=== PATIENT | male | born 1985 | race Caucasian/White ===

== ENCOUNTER 2018-07-15 11:58 | Inpatient (IN) | payer SELFPAY ==
--- NOTE | 2018-07-15 13:28 | ER Document Report ---
ED Medical Screen (RME) - General Chief Complaint: Leg Swelling Stated Complaint: LEG PAIN Time Seen by Provider: 07/15/18 13:26 Notes: Patient is a 32-year-old male that presents to the emergency department for chief complaint of itching, and right leg swelling, after picking thinking he has scabies. ROS: GENERAL: Denies fever or chills CV: Denies chest pain PHYSICAL EXAMINATION: Vital signs reviewed. GENERAL: Well-appearing, well-nourished in mild distress HEAD: Atraumatic, normocephalic. EYES: Pupils equal round extraocular movements intact, conjunctiva are normal. ENT: Nares patent NECK: Normal range of motion CV: Heart regular rate and rhythm LUNGS: No respiratory distress Musculoskeletal: Normal range of motion NEUROLOGICAL: Normal speech PSYCH: Normal mood, normal affect. Skin: Multiple areas of excoriation, the left lower extremity appears cellulitic with erythema, and tenderness. MDM: Patient seen and examined for rapid initial assessment. Vital signs reviewed. A comprehensive ED assessment and evaluation of the patient, analysis of test results and completion of the medical decision making process will be conducted by additional ED providers. *Note is created using voice recognition software and may contain spelling, syntax or grammatical errors. TRAVEL OUTSIDE OF THE [place] IN LAST 30 DAYS: No - Related Data Allergies/Adverse Reactions: No Known Allergies Allergy (Verified 07/15/18 12:00) Past Medical History Pulmonary Medical History: Denies: Hx Tuberculosis Neurological Medical History: Denies: Hx Seizures GI Medical History: Reports: Hx Gastroesophageal Reflux Disease, Hx Ulcer Past Surgical History: Reports: Hx Orthopedic Surgery - arm. Denies: Hx Pacemaker - Immunizations Hx Diphtheria, Pertussis, Tetanus Vaccination: Yes Physical Exam - Vital signs Vitals: Temp Pulse Resp BP Pulse Ox 97.6 F 126 H 20 108/73 97 07/15/18 12:21 07/15/18 12:21 07/15/18 12:21 07/15/18 12:21 07/15/18 12:21 Course - Vital Signs Vital signs: Temp Pulse Resp BP Pulse Ox 97.6 F 126 H 20 108/73 97 07/15/18 12:21 07/15/18 12:21 07/15/18 12:21 07/15/18 12:21 07/15/18 12:21
[2018-07-15] MEDS ORDERED: NORMAL SALINE 1000 ML 1,000 ML IV ONE ×2 (13:38→16:14)
[2018-07-15] MEDS ORDERED: VANCOMYCIN HCL INJ 1000 MG VIAL IV ONE (13:38)
[2018-07-15 14:25] LABS: INTERNATIONAL RATION (INR) 1.16; PROTHROMBIN TIME 15.4 SEC (11.4-15.4)
[2018-07-15 14:36] LABS: HEMATOCRIT 39.4 % (37.9-51.0); HEMOGLOBIN 13.7 g/dL (13.5-17.0); MEAN CORPUSCULAR HEMOGLOBIN 29.1 pg (27.0-33.4); MEAN CORPUSCULAR HGB CONC 34.7 g/dL (32.0-36.0); MEAN CORPUSCULAR VOLUME 84 fl (80-97); PLATELET COUNT 416 10^3/uL (150-450); RED BLOOD COUNT 4.69 10^6/uL (4.35-5.55); RED CELL DISTRIBUTION WIDTH 13.6 % (11.5-14.0); WHITE BLOOD COUNT 23.8 10^3/uL (4.0-10.5)
[2018-07-15 14:39] LABS: ALANINE AMINOTRANSFERASE 39 U/L (21-72); ALBUMIN 3.7 g/dL (3.5-5.0); ALKALINE PHOSPHATASE 130 U/L (38-126); ANION GAP 15 (5-19); ASPARTATE AMINO TRANSFERASE 30 U/L (17-59); BILIRUBIN,DIRECT 0.5 mg/dL (0.0-0.4); BILIRUBIN,TOTAL 1.6 mg/dL (0.2-1.3); BLOOD UREA NITROGEN 14 mg/dL (7-20); CALCIUM 9.2 mg/dL (8.4-10.2); CARBON DIOXIDE 27 mmol/L (22-30); CHLORIDE 91 mmol/L (98-107); GLUCOSE 113 mg/dL (75-110); POTASSIUM 3.6 mmol/L (3.6-5.0); SODIUM 132.8 mmol/L (137-145); TOTAL PROTEIN 7.4 g/dL (6.3-8.2)
[2018-07-15 14:59] LABS: ABSOLUTE LYMPHOCYTES# (MANUAL) 0.2 10^3/uL (0.5-4.7); ABSOLUTE MONOCYTES # (MANUAL) 1.2 10^3/uL (0.1-1.4); ABSOLUTE NEUTROPHILS# (MANUAL) 22.4 10^3/uL (1.7-8.2); BAND NEUTROPHILS % (MANUAL) 5 % (3-5); BASOPHILS % (MANUAL) 0 % (0-2); EOSINOPHILS % (MANUAL) 0 % (0-6); LYMPHOCYTES % (MANUAL) 1 % (13-45); MONOCYTES % (MANUAL) 5 % (3-13); PLATELET COMMENT ADEQUATE; POLYCHROMASIA SLIGHT; SEGMENTED NEUTROPHILS % (MAN) 89 % (42-78); TOTAL CELLS COUNTED 100; TOXIC GRANULATION 3+; TOXIC VACUOLATION PRESENT
--- NOTE | 2018-07-15 15:53 | ER Document Report ---
ED Extremity Problem, Lower - General Chief Complaint: Leg Swelling Stated Complaint: LEG PAIN Time Seen by Provider: 07/15/18 13:26 Mode of Arrival: Ambulatory Information source: Patient Notes: 32-year-old IV heroin user is here with his mother complaining of severe pain and redness to his left leg with crusted lesions and sores all over his body. He 3 days. Lab work has already been resulted with an elevated white count and no segmental shift, lactic acid is 3.1. EKG has not been done. Vancomycin is hanging, 1 L of IV fluid has almost been completed. Patient denies chest pain shortness of breath. Denies abdominal pain vomiting or diarrhea. He is worried that he has a hernia in his left groin. He states that a roommate that he is living with was diagnosed with scabies and he has been scratching these lesions for 6 days. He has a history of MRSA. TRAVEL OUTSIDE OF THE [place] IN LAST 30 DAYS: No - Related Data Allergies/Adverse Reactions: No Known Allergies Allergy (Verified 07/15/18 12:00) Past Medical History - General Information source: Patient - Social History Smoking Status: Current Every Day Smoker Chew tobacco use (# tins/day): No Drug Abuse: Heroin - daily, last dose 3 days ago, Methamphetamine Family History: Reviewed & Not Pertinent Patient has suicidal ideation: No Patient has homicidal ideation: No Renal/ Medical History: Denies: Hx Peritoneal Dialysis GI Medical History: Reports: Hx Gastroesophageal Reflux Disease, Hx Ulcer Skin Medical History: Reports Hx MRSA Past Surgical History: Reports: Hx Orthopedic Surgery - arm - Immunizations Hx Diphtheria, Pertussis, Tetanus Vaccination: Yes Review of Systems - Review of Systems Constitutional: See HPI EENT: No symptoms reported Cardiovascular: No symptoms reported Respiratory: No symptoms reported Gastrointestinal: No symptoms reported Genitourinary: No symptoms reported Male Genitourinary: No symptoms reported Musculoskeletal: See HPI Skin: No symptoms reported Hematologic/Lymphatic: No symptoms reported Neurological/Psychological: No symptoms reported Physical Exam - Vital signs Vitals: Temp Pulse Resp BP Pulse Ox 97.6 F 126 H 20 108/73 97 07/15/18 12:21 07/15/18 12:21 07/15/18 12:21 07/15/18 12:21 07/15/18 12:21 Interpretation: Tachycardic - General General appearance: Appears well, Alert - HEENT Head: Normocephalic, Atraumatic Eyes: Normal Conjunctiva: Normal Pupils: PERRL Mucous membranes: Dry Pharynx: Erythema Neck: Supple Notes: looks dry - Respiratory Respiratory status: No respiratory distress Chest status: Nontender Breath sounds: Normal Chest palpation: Normal - Cardiovascular Rhythm: Regular Heart sounds: Normal auscultation Murmur: No - Abdominal Inspection: Normal Distension: No distension Bowel sounds: Normal Tenderness: Nontender. No: Tender Organomegaly: No organomegaly - Back Back: Normal, Nontender. No: Tender - Extremities General upper extremity: Normal inspection, Nontender, Normal color, Normal ROM , Normal temperature General lower extremity: Tender, Edema, Other - hot red left lower leg cellultis with lyphangitis to left femoral and inquinal nodes. No: Normal color , Normal ROM, Normal temperature, Choco's sign - Neurological Neuro grossly intact: Yes Cognition: Normal Orientation: AAOx4 [place] Coma Scale Eye Opening: Spontaneous [place] Coma Scale Verbal: Oriented [place] Coma Scale Motor: Obeys Commands [place] Coma Scale Total: 15 Speech: Normal Motor strength normal: LUE, RUE, LLE, RLE Sensory: Normal - Psychological Associated symptoms: Normal affect, Normal mood - Skin Skin Temperature: Warm Skin Moisture: Dry Skin Color: Normal Skin irregularity: Rash - Large crusted ulcerations generalized body that he is picking. Some more pustules. Location of irregularity: Generalized Course - Re-evaluation Re-evalutation: 07/15/18 16:18 Patient's white count is 24,000 with a shift lactic acid is 3.2 patient is irritable and complaining of severe pain in the leg. I have ordered a venous Doppler ultrasound another liter of fluid because he looks dehydrated and Zosyn. I called Dr. Hood for admission and he will come see the patient and admit him for left leg cellulitis, sepsis. 07/15/18 16:24 - Vital Signs Vital signs: Temp Pulse Resp BP Pulse Ox 97.6 F 126 H 20 108/73 97 07/15/18 12:21 07/15/18 12:21 07/15/18 12:21 07/15/18 12:21 07/15/18 12:21 - Laboratory Result Diagrams: 07/15/18 13:38 07/15/18 14:01 Laboratory results interpreted by me: 07/15/18 07/15/18 07/15/18 13:38 14:01 14:01 WBC 23.8 H Seg Neuts % (Manual) 89 H Lymphocytes % (Manual) 1 L Abs Neuts (Manual) 22.4 H Abs Lymphs (Manual) 0.2 L Sodium 132.8 L Chloride 91 L Glucose 113 H Lactic Acid 3.1 H Total Bilirubin 1.6 H Direct Bilirubin 0.5 H Alkaline Phosphatase 130 H Discharge - Discharge Clinical Impression: Left leg cellulitis, crusted sores generalized body, IV heroin user, Methamphetamine use, Lymphangitis Sepsis Qualifiers: Sepsis type: sepsis due to unspecified organism Qualified Code(s): A41.9 - Sepsis, unspecified organism Condition: Stable Disposition: ADMITTED INPATIENT Admitting Provider: Hospitalist Unit Admitted: [facility]
[2018-07-15] MEDS ORDERED: PIPERACILLIN/TAZOBACTAM 3.375 GM VIAL IV ONE (16:10)
[2018-07-15] MEDS ORDERED: ONDANSETRON HCL INJ/PF 4 MG/2 ML SDV IV ONE (16:10)
[2018-07-15] MEDS ORDERED: KETOROLAC TROMETHAMINE INJ/PF 30 MG/1 ML SDV IV ONE (16:15)
[2018-07-15] MEDS ORDERED: ACETAMINOPHEN 325 MG TABLET PO ONE (16:17)
[2018-07-15 17:09] LABS: AMORPHOUS SEDIMENT,URINE TRACE /HPF; APPEARANCE,URINE CLEAR; BILIRUBIN,URINE NEGATIVE (NEGATIVE); COLOR,URINE YELLOW; GLUCOSE, URINE NEGATIVE (NEGATIVE); KETONES,URINE NEGATIVE (NEGATIVE); LEUKOCYTE ESTERASE,URINE NEGATIVE (NEGATIVE); NITRITE,URINE NEGATIVE (NEGATIVE); PROTEIN,URINE NEGATIVE (NEGATIVE); URINE SPECIFIC GRAVITY 1.011
[2018-07-15] MEDS ORDERED: IPRATROPIUM/ALBUTEROL 0.5-2.5 MG/3 ML AMPUL NEB PRN (17:31)
[2018-07-15] MEDS ORDERED: LORAZEPAM INJ 2 MG/1 ML VIAL IV PRN (17:31)
[2018-07-15] MEDS ORDERED: ONDANSETRON HCL INJ/PF 4 MG/2 ML SDV IV PRN (17:31)
[2018-07-15] MEDS ORDERED: NORMAL SALINE 1000 ML 1,000 ML IV PRN (17:31)
[2018-07-15] MEDS ORDERED: ACETAMINOPHEN 325 MG TABLET PO PRN (17:31)
[2018-07-15 17:40] LABS: URINE BARBITURATES SCREEN NEGATIVE; URINE BENZODIAZEPINES SCREEN NEGATIVE; URINE COCAINE SCREEN NEGATIVE; URINE MARIJUANA (THC) SCREEN UNCONFIRMED POSITIVE; URINE METHADONE SCREEN NEGATIVE; URINE PHENCYCLIDINE SCREEN NEGATIVE
[2018-07-15] MEDS ORDERED: KETOROLAC TROMETHAMINE INJ/PF 30 MG/1 ML SDV IV PRN (17:40)
[2018-07-15] MEDS ORDERED: PHARMACY COMMUNICATION ORDER MC NR (17:45)
[2018-07-15] MEDS ORDERED: DOCUSATE SODIUM 100 MG CAPSULE PO SCH (18:00)
--- NOTE | 2018-07-15 18:13 | PDOC H&P ---
History of Present Illness Admission Date/PCP: 07/15/18 16:27 No PCP Patient complains of: Left leg pain History of Present Illness: TANYA VILLAR is a 32 year old male with a past medical history of IV drug use who presented to the ED complaining of left leg pain for a few days. Patient states his left leg is red and hurting for a few days. He is in the ED with his mother who brought him. Patient is laying on the bed and not wanting to talk to me and just wants pain medicine. He tells me that he does heroin and his last dose was 3 days ago. I asked him when this redness started and he mentioned just 2 days ago. He is also complaining of scabs and wounds all over his body and he believes this is scabies. He believes that his roommate has scabies and now he has it and he has been itching. He also admits to having MRSA in the past. Otherwise he denies chest pain, shortness of breath, abdominal pain or nausea or vomiting. In the ED he received IV fluids, IV Zosyn, IV vancomycin and ketorolac. Past Medical History Pulmonary Medical History: Denies: Tuberculosis Neurological Medical History: Denies: Seizures GI Medical History: Reports: Gastroesophageal Reflux Disease Past Surgical History Past Surgical History: Reports: Orthopedic Surgery - arm Denies: Pacemaker Social History Information Source: Patient, Parent Smoking Status: Current Every Day Smoker Frequency of Alcohol Use: None Hx Recreational Drug Use: Yes Drugs: Cocaine, Heroin Hx Prescription Drug Abuse: Yes - Advance Directive Resuscitation Status: Full Code Family History Family History: Reviewed & Not Pertinent Parental Family History Reviewed: Yes Children Family History Reviewed: NA Sibling(s) Family History Reviewed.: Yes - As per mother's brother also of heroin overdose. Medication/Allergy Home Medications: Oxycodone HCl/Acetaminophen [Percocet 5-325 mg Tablet] 1 - 2 tab PO ASDIR PRN # 50 tablet 06/26/16 Rivaroxaban [Xarelto 10 mg Tablet] 10 mg PO DAILY #20 tablet 06/26/16 Allergies/Adverse Reactions: No Known Allergies Allergy (Verified 07/15/18 12:00) Review of Systems All systems: reviewed and no additional remarkable complaints except as stated Constitutional: PRESENT: chills, weakness. ABSENT: fever(s) Cardiovascular: ABSENT: chest pain, dyspnea on exertion Respiratory: ABSENT: dyspnea Gastrointestinal: ABSENT: abdominal pain, diarrhea, nausea, vomiting Musculoskeletal: ABSENT: muscle weakness Integumentary: PRESENT: erythema - left LE and pain Neurological: ABSENT: focal weakness, numbness, syncope, tingling Endocrine: ABSENT: cold intolerance, heat intolerance Hematologic/Lymphatic: ABSENT: easy bleeding Physical Exam Vital Signs: Temp Pulse Resp BP Pulse Ox 97.6 F 126 H 20 108/73 97 07/15/18 12:21 07/15/18 12:21 07/15/18 12:21 07/15/18 12:21 07/15/18 12:21 Intake & Output 07/14/18 07/15/18 07/16/18 06:59 06:59 06:59 Intake Total 1000 Balance 1000 General appearance: PRESENT: mild distress - wanting pain medications, thin, other - cachectic appearing Head exam: PRESENT: atraumatic, normocephalic Eye exam: PRESENT: EOMI, PERRLA. ABSENT: scleral icterus Ear exam: PRESENT: normal external ear exam Mouth exam: PRESENT: tongue midline Teeth exam: PRESENT: poor dentation Neck exam: ABSENT: tracheal deviation Respiratory exam: PRESENT: clear to auscultation dona, symmetrical Cardiovascular exam: PRESENT: +S1, +S2 Pulses: PRESENT: +2 pedal pulses bilateral GI/Abdominal exam: PRESENT: normal bowel sounds, soft. ABSENT: tenderness Extremities exam: PRESENT: tenderness - Left lower extremity erythematous, warm and tender to touch-with lymphangitic spread up to the left groin with some palpable nodes. Neurological exam: PRESENT: alert, awake, oriented to person, oriented to place , oriented to time, CN II-XII grossly intact Psychiatric exam: PRESENT: agitated Skin exam: PRESENT: dry, warm, other - Skin wounds in his arms legs and body- circular-scabbed in different stages of healing. Results Laboratory Results: 07/15/18 07/15/18 16:44 17:00 Lipase 23.5 Urine Color YELLOW Urine Appearance CLEAR Urine pH 6.0 Ur Specific [place] 1.011 Urine Protein NEGATIVE Urine Glucose (UA) NEGATIVE Urine Ketones NEGATIVE Urine Blood NEGATIVE Urine Nitrite NEGATIVE Ur Leukocyte Esterase NEGATIVE Urine WBC (Auto) 2 Urine RBC (Auto) 0 Assessment & Plan - Diagnosis (1) Sepsis Qualifiers: Sepsis type: sepsis due to unspecified organism Qualified Code(s): A41.9 - Sepsis, unspecified organism Is this a current diagnosis for this admission?: Yes Plan: Sepsis is likely secondary to his left lower extremity cellulitis. He has a known history of IV drug use but at this time I am not sure if this was the cause or not. He does have lymphangitic spread to his groin. He will be started on Zosyn and vancomycin at this time. Ordered blood cultures. Lactic acid initially was greater than 3 and trended down. WBC is greater than 25, 000. Repeat blood work in the a.m. and trend. (2) Left leg cellulitis Is this a current diagnosis for this admission?: Yes Plan: See plan above. (3) Lymphangitis Is this a current diagnosis for this admission?: Yes Plan: See plan for sepsis. (4) Continuous illicit drug use Is this a current diagnosis for this admission?: Yes Plan: History of heroin and methamphetamine use. He is asking for narcotics for his pain. At this time I will only offer him Tylenol and Toradol IV. I spoken with his mother who also agrees with the plan and request that I do not give any narcotics to her son. (5) Wound of skin Is this a current diagnosis for this admission?: Yes Plan: There are areas of different stages of skin wounds-circular. Some are scabbed and some are slightly open. He states this is scabies but I am not sure. - Time Time Spent: 50 to 70 Minutes - Plan Summary Plan Summary: Admit to inpatient for IV antibiotics. Expected length of stay is greater than 2 midnights. Given his past medical history there is a high probability he might sign out AGAINST MEDICAL ADVICE when he feels better.
[2018-07-15 19:05] VITALS: BP 121/67
--- NOTE | 2018-07-15 19:30 | EKG REPORT ---
SEVERITY:- NORMAL ECG - SINUS RHYTHM : Confirmed by: Endy Callahan MD 15-Jul-2018 19:30:01
[2018-07-15] MEDS ORDERED: FAMOTIDINE INJ/PF 20 MG/2 ML SDV IV SCH (22:00)
[2018-07-15] MEDS ORDERED: HEPARIN SOD (PORCINE) 5,000 UNIT/ML 1 ML SYRINGE SUBCUT SCH (22:00)
[2018-07-15] MEDS ORDERED: VANCOMYCIN HCL 1,000 MG in DEXTROSE 5%-WATER 250 ML IV SCH (22:00)
[2018-07-16] MEDS ORDERED: PIPERACILLIN/TAZOBACTAM 3.375 GM VIAL IV SCH (06:00)
[2018-07-16] MEDS ORDERED: PIPERACILLIN SODIUM/TAZOBACTAM 3.375 GM in NORMAL SALINE 100 ML IV SCH (10:00)
--- NOTE | 2018-07-16 12:27 | XCELERA REPORT ---
[address] [address] Lower Extremity Venous Evaluation Procedure: Color flow and duplex imaging of the veins of the left lower extremity as well as the right Common Femoral vein. Right Sided Venous Evaluation The right common femoral vein is fully compressible. Spontaneous and phasic flow is present in the right common femoral vein. Left Sided Venous Evaluation Profuse subcutaneous varicosities noted. Compression difficult due to patient discomfort. Normal vessel filling wall to wall, compression and augmentation as well as Colour flow down to the infrageniculate veins. Interpretation Summary No duplex evidence of DVT or obstruction in the left lower extremity nor in the right Common Femoral vein. Left sided upper thigh varicosities noted. Name: TANYA VILLAR Age: 32 yrs Gender: Male : 1985 Patient Status: Inpatient Patient Location: [place] [address]^A Study Date: 07/15/2018 06:19 PM Reason For Study: Left lower leg swelling cellulitis rule out DVT Ordering Physician: MILAN ENCISO Performed By: Estelita Terrazas : MILAN ENCISO > Bryant Falcon
== END 2018-07-15 21:24 | disposition left against medical advice (07) | DRG 872 ==
LOC: ER 11:58 → EH 16:27
PROVIDERS: ADMIT Internal Medicine; ATTEND Internal Medicine
DX: A41.9 Sepsis, unspecified organism (principal); L03.116 Cellulitis of left lower limb; I89.1 Lymphangitis; K21.9 Gastro-esophageal reflux disease without esophagitis; F19.90 Other psychoactive substance use, unspecified, uncomplicated; Z79.899 Other long term (current) drug therapy; F17.200 Nicotine dependence, unspecified, uncomplicated; Z86.14 Personal history of Methicillin resistant Staphylococcus aureus infection
CPT/HCPCS: 36415; 80053; 80307; 81001; 83605; 83690; 85025; 85610; 87040; 87086; 93005; 93010; 93971; 96365; 96366; 99285; J1885; J2405; J2543; J3370; J7030

== ENCOUNTER 2018-07-16 00:06 | Inpatient (IN) | payer SELFPAY ==
[2018-07-16] MEDS ORDERED: VANCOMYCIN HCL INJ 1000 MG VIAL IV ONE ×2 (02:04→06:15)
[2018-07-16] MEDS ORDERED: NORMAL SALINE 1000 ML 1,000 ML IV ONE ×2 (02:04→06:15)
[2018-07-16] MEDS ORDERED: MORPHINE SULFATE 10 MG/ML INJ IV ONE (02:05)
--- NOTE | 2018-07-16 02:46 | ER Document Report ---
ED General - General Chief Complaint: Psych Problem Stated Complaint: ABSCESS Time Seen by Provider: 07/16/18 01:56 Information source: Patient, Parent TRAVEL OUTSIDE OF THE [place] IN LAST 30 DAYS: No - HPI Patient complains to provider of: leg pain and swelling Onset: Last week - This 32-year-old man presents for evaluation of painful swelling in the left lower extremity as well as redness, fevers, confusion generalized malaise and a headache. He currently says that his symptoms have seemed to worsen, his mother did bring him on IVC paperwork as well because she notes he is continued to utilize heroin over last several days and has been picking at his skin as well as having paranoia. - Related Data Allergies/Adverse Reactions: No Known Allergies Allergy (Verified 07/15/18 12:00) Past Medical History - General Information source: Patient, Parent - Social History Smoking Status: Current Every Day Smoker Chew tobacco use (# tins/day): No Drug Abuse: Heroin, Marijuana Family History: Reviewed & Not Pertinent Patient has suicidal ideation: No Patient has homicidal ideation: No Pulmonary Medical History: Denies: Hx Tuberculosis Neurological Medical History: Denies: Hx Seizures Renal/ Medical History: Denies: Hx Peritoneal Dialysis GI Medical History: Reports: Hx Gastroesophageal Reflux Disease, Hx Ulcer Skin Medical History: Reports Hx MRSA Past Surgical History: Reports: Hx Orthopedic Surgery - arm. Denies: Hx Pacemaker - Immunizations Hx Diphtheria, Pertussis, Tetanus Vaccination: Yes Review of Systems - Review of Systems -: Yes All other systems reviewed and negative Physical Exam - Vital signs Vitals: Temp Pulse Resp BP Pulse Ox 98.1 F 89 18 124/79 96 07/16/18 00:15 07/16/18 00:15 07/16/18 00:15 07/16/18 00:15 07/16/18 00:15 - General General appearance: Alert, Anxious In distress: Moderate - HEENT Head: Normocephalic Eyes: Normal Conjunctiva: Normal Cornea: Normal Extraocular movements intact: Yes Eyelashes: Normal Pupils: PERRL - Respiratory Respiratory status: No respiratory distress Chest status: Nontender Breath sounds: Normal Chest palpation: Normal - Cardiovascular Rhythm: Regular Heart sounds: Normal auscultation Murmur: No - Abdominal Inspection: Normal Distension: No distension Tenderness: Nontender Organomegaly: No organomegaly - Back Back: Normal - Extremities General upper extremity: Other - Multiple scabs and abrasions scattered over the upper extremities as well as over the shoulder, General lower extremity: Other - Left lower extremity demonstrates marked erythema as well as some active drainage from multiple wounds, - Neurological Neuro grossly intact: Yes Cognition: Normal Orientation: AAOx4 [place] Coma Scale Eye Opening: Spontaneous [place] Coma Scale Verbal: Oriented [place] Coma Scale Motor: Obeys Commands [place] Coma Scale Total: 15 Speech: Normal Cranial nerves: Normal Cerebellar coordination: Normal Motor strength normal: LUE, RUE, LLE, RLE - Psychological Associated symptoms: Agitated, Angry, Anxious Course - Re-evaluation Re-evalutation: 07/16/18 06:13 32-year-old man presents for evaluation of painful swelling in the left lower extremity with his mother. She did take out an IVC on this gentleman because of his paranoid behavior and persistent use of heroin in the setting of having horrible leg infection. He was seen earlier received IV antibiotics and subsequently left the hospital because he was feeling unwell. On examination the patient has an obviously cellulitic leg with prominent swelling and pain. He appears agitated confused and angry. Current plan will be to obtain x-ray of the leg blood cultures and a sepsis eval. We will administer antibiotics as I believe this is likely a worsening cellulitis for this patient. Believe he would benefit from inpatient treatment utilizing IV antibiotics. Difficulty in obtaining access, because of repeated attempts at obtaining access placed ultrasound IV. We will administer fluids IV, will obtain blood cultures will administer vancomycin. 07/16/18 06:37 Patient to be admitted to the hospitalist service for treatment with his IV fluids and IV antibiotics for presumptive cellulitis of the left lower extremity. As noted that patient does currently have active mental health evaluation required. Following medical stabilization should receive mental health evaluation. - Vital Signs Vital signs: Temp Pulse Resp BP Pulse Ox 98.1 F 89 18 124/79 96 07/16/18 00:15 07/16/18 00:15 07/16/18 00:15 07/16/18 00:15 07/16/18 00:15 - Laboratory Result Diagrams: 07/16/18 05:48 07/16/18 05:48 Laboratory results interpreted by me: 07/16/18 07/16/18 05:48 05:48 WBC 28.4 H RBC 3.87 L Hgb 11.2 L D Hct 32.3 L Seg Neuts % (Manual) 80 H Abs Neuts (Manual) 23.9 H Sodium 135.7 L Chloride 95 L Direct Bilirubin 0.5 H Alkaline Phosphatase 170 H Discharge - Discharge Clinical Impression: Wound of skin, Left leg cellulitis, Continuous illicit drug use, Heroin withdrawal Condition: Stable Disposition: ADMITTED INPATIENT Admitting Provider: Hospitalist Unit Admitted: Medical Floor
[2018-07-16] MEDS ORDERED: MORPHINE SULFATE 10 MG/ML INJ IM ONE (03:20)
--- NOTE | 2018-07-16 03:53 | RADIOLOGY REPORT (SQ) ---
EXAM DESCRIPTION: XR TIBIA FIBULA 2 VIEWS COMPLETED DATE/TME: 07/16/2018 02:05 CLINICAL HISTORY: 32 years, Male, leg swelling COMPARISON: None. FINDINGS: 2 views of the left tibia and fibula. No acute fracture or dislocation. Normal osseous mineralization. Mild edema in the subcutaneous soft tissues. No radiopaque foreign bodies. IMPRESSION: No acute fracture or dislocation. 2011 [employer]- All Rights Reserved
[2018-07-16] MEDS ORDERED: FENTANYL CITRATE INJ/PF 100 MCG/2 ML AMPUL IV ONE (06:05)
[2018-07-16 06:06] LABS: HEMATOCRIT 32.3 % (37.9-51.0); MEAN CORPUSCULAR HGB CONC 34.8 g/dL (32.0-36.0); MEAN CORPUSCULAR VOLUME 83 fl (80-97); PLATELET COUNT 443 10^3/uL (150-450); RED BLOOD COUNT 3.87 10^6/uL (4.35-5.55); RED CELL DISTRIBUTION WIDTH 13.6 % (11.5-14.0); WHITE BLOOD COUNT 28.4 10^3/uL (4.0-10.5)
[2018-07-16 06:08] LABS: INTERNATIONAL RATION (INR) 1.07; PROTHROMBIN TIME 14.4 SEC (11.4-15.4)
[2018-07-16 06:17] LABS: HEMOGLOBIN 11.2 g/dL (13.5-17.0)
[2018-07-16 06:23] LABS: ALANINE AMINOTRANSFERASE 41 U/L (21-72); ALBUMIN 3.6 g/dL (3.5-5.0); ALKALINE PHOSPHATASE 170 U/L (38-126); ANION GAP 15 (5-19); ASPARTATE AMINO TRANSFERASE 43 U/L (17-59); BILIRUBIN,DIRECT 0.5 mg/dL (0.0-0.4); BILIRUBIN,TOTAL 1.2 mg/dL (0.2-1.3); BLOOD UREA NITROGEN 11 mg/dL (7-20); CALCIUM 9.1 mg/dL (8.4-10.2); CARBON DIOXIDE 26 mmol/L (22-30); CHLORIDE 95 mmol/L (98-107); GLUCOSE 103 mg/dL (75-110); POTASSIUM 3.6 mmol/L (3.6-5.0); SODIUM 135.7 mmol/L (137-145); TOTAL PROTEIN 7.6 g/dL (6.3-8.2)
[2018-07-16 06:24] LABS: VENOUS BLOOD BASE EXCESS 1.4 mmol/L; VENOUS BLOOD PCO2 46.4 mmHg (35-63); VENOUS BLOOD PH 7.38 (7.30-7.42)
[2018-07-16 06:32] LABS: ABSOLUTE LYMPHOCYTES# (MANUAL) 3.7 10^3/uL (0.5-4.7); ABSOLUTE MONOCYTES # (MANUAL) 0.9 10^3/uL (0.1-1.4); ABSOLUTE NEUTROPHILS# (MANUAL) 23.9 10^3/uL (1.7-8.2); BAND NEUTROPHILS % (MANUAL) 4 % (3-5); BASOPHILS % (MANUAL) 0 % (0-2); EOSINOPHILS % (MANUAL) 0 % (0-6); LYMPHOCYTES % (MANUAL) 13 % (13-45); MONOCYTES % (MANUAL) 3 % (3-13); SEGMENTED NEUTROPHILS % (MAN) 80 % (42-78); TOTAL CELLS COUNTED 100
[2018-07-16 06:33] LABS: BURR CELLS SLIGHT; OVALOCYTES SLIGHT; POIKILOCYTOSIS 1+; TOXIC GRANULATION 2+
[2018-07-16 06:35] LABS: PLATELET COMMENT ADEQUATE
[2018-07-16] MEDS ORDERED: HALOPERIDOL 2 MG TABLET PO PRN (07:21)
--- NOTE | 2018-07-16 07:41 | EKG REPORT ---
SEVERITY:- NORMAL ECG - SINUS RHYTHM : Confirmed by: Endy Callahan MD 16-Jul-2018 07:40:46
[2018-07-16] MEDS ORDERED: PIPERACILLIN/TAZOBACTAM 3.375 GM VIAL IV ONE (10:35)
[2018-07-16] MEDS ORDERED: LORAZEPAM 0.5 MG TABLET PO PRN (10:36)
[2018-07-16] MEDS ORDERED: ACETAMINOPHEN 325 MG TABLET PO PRN (10:41)
[2018-07-16] MEDS ORDERED: VANCOMYCIN HCL 0 MG in DEXTROSE 5%-WATER 250 ML IV NR (10:45)
[2018-07-16] MEDS ORDERED: CEFTRIAXONE 1 GM/D5W RTU 1 GM/50 ML RTUPB IV SCH (11:00)
[2018-07-16 11:24] LABS: APPEARANCE,URINE CLEAR; BILIRUBIN,URINE NEGATIVE (NEGATIVE); COLOR,URINE YELLOW; GLUCOSE, URINE 150 mg/dL (NEGATIVE); KETONES,URINE NEGATIVE (NEGATIVE); LEUKOCYTE ESTERASE,URINE NEGATIVE (NEGATIVE); NITRITE,URINE NEGATIVE (NEGATIVE); PROTEIN,URINE NEGATIVE (NEGATIVE); URINE SPECIFIC GRAVITY 1.008
[2018-07-16 11:45] LABS: URINE BARBITURATES SCREEN NEGATIVE; URINE BENZODIAZEPINES SCREEN NEGATIVE; URINE COCAINE SCREEN NEGATIVE; URINE MARIJUANA (THC) SCREEN UNCONFIRMED POSITIVE; URINE METHADONE SCREEN NEGATIVE; URINE PHENCYCLIDINE SCREEN NEGATIVE
[2018-07-16] MEDS: CEFTRIAXONE SODIUM 1,000 MG in NORMAL SALINE 50 ML IV SCH (12:17)
[2018-07-16] MEDS: ENOXAPARIN SODIUM INJ 40 MG/0.4 ML DISP.SYRIN SUBCUT SCH (13:26)
[2018-07-16] MEDS: DEXTROSE 5%-NORMAL SALINE 1,000 ML IV PRN (17:44)
--- NOTE | 2018-07-16 17:44 | PSYCHOLOGICAL NOTE ---
Psych Note - Psych Note Psych Note: Reason for consult: IVC This 32-year-old man presents for evaluation of painful swelling in the left lower extremity as well as redness, fevers, confusion generalized malaise and a headache. He currently says that his symptoms have seemed to worsen, his mother did bring him on IVC paperwork as well because she notes he is continued to utilize heroin over last several days and has been picking at his skin as well as having paranoia. Patient disclosed he is currently going through withdrawal; "I am no good man I am sick." When asked what drugs he used he states he uses heroin every day. At this point patient rolled over and refused to further engage with clinician. Patient is alert and orientated to person, place, time and circumstance. Mood is irritable with congruent affect. Patient refused to engage in evaluation only stating that he is currently going through withdrawal from daily use of heroin. Patient's attention, concentration, insight, judgment, and impulse control are extremely poor. 292.0 (F11.23) opiate withdrawal Patient is recommended to continue under IVC. Patient's insight, judgment, and impulse control are extremely poor making him a danger to himself. Patient is currently going through withdrawals. Patient will be reevaluated. Dr. Duran was consulted and the care and management of this patient; attending physician is in agreement with recommendations and disposition.
[2018-07-16] MEDS: VANCOMYCIN HCL 1,000 MG in DEXTROSE 5%-WATER 250 ML IV SCH (17:47)
--- NOTE | 2018-07-16 18:16 | PDOC H&P ---
History of Present Illness Admission Date/PCP: 07/16/18 06:52 History of Present Illness: TANYA VILLAR is a 32 year old male presented to ED c/o painful swelling in the left lower extremity as well as redness, fevers, generalized malaise and a headache. He does not provide too much history his mother who is at bedside states that his symptoms have seemed to worsen, he continues to use IV drugs. She mentions that he has been picking on his skin stating that he has a scabies which has caused several scabs over his upper extremities. As per mother patient has been jailed before, and has been suffering from back pain He denies any shortness of breath, chest pain, nausea, vomiting, diarrhea, constipation, urinary symptoms Past Medical History Pulmonary Medical History: Denies: Tuberculosis Neurological Medical History: Denies: Seizures GI Medical History: Reports: Gastroesophageal Reflux Disease Musculoskeltal Medical History: Denies: Arthritis Past Surgical History Past Surgical History: Reports: Orthopedic Surgery - arm Denies: Pacemaker Social History Smoking Status: Current Every Day Smoker Frequency of Alcohol Use: None Hx Recreational Drug Use: Yes Drugs: Heroin, Marijuana, Other Hx Prescription Drug Abuse: Yes Family History Family History: Reviewed & Not Pertinent Parental Family History Reviewed: Yes Children Family History Reviewed: Yes Sibling(s) Family History Reviewed.: Yes Medication/Allergy Home Medications: Gabapentin 600 mg PO Q12 07/15/18 Allergies/Adverse Reactions: No Known Allergies Allergy (Verified 07/15/18 12:00) Review of Systems Constitutional: PRESENT: as per HPI Cardiovascular: PRESENT: as per HPI Respiratory: PRESENT: as per HPI Gastrointestinal: PRESENT: as per HPI Genitourinary: PRESENT: as per HPI Musculoskeletal: PRESENT: as per HPI Neurological: PRESENT: as per HPI Physical Exam Vital Signs: Temp Pulse Resp BP Pulse Ox 98.6 F 97 18 116/59 L 100 07/16/18 13:06 07/16/18 13:06 07/16/18 00:15 07/16/18 13:06 07/16/18 13:06 Intake & Output 07/15/18 07/16/18 07/17/18 06:59 06:59 06:59 Intake Total 2050 Output Total 1402 Balance 648 General appearance: PRESENT: no acute distress, disheveled, well-developed, well -nourished Head exam: PRESENT: atraumatic, normocephalic Eye exam: PRESENT: conjunctiva pink, EOMI, PERRLA. ABSENT: scleral icterus Respiratory exam: PRESENT: clear to auscultation dona. ABSENT: rales, rhonchi, wheezes Cardiovascular exam: PRESENT: RRR. ABSENT: diastolic murmur, rubs, systolic murmur Pulses: PRESENT: normal dorsalis pedis pul Vascular exam: PRESENT: normal capillary refill GI/Abdominal exam: PRESENT: normal bowel sounds, soft. ABSENT: distended, guarding, mass, organolmegaly, rebound, tenderness Rectal exam: PRESENT: deferred Extremities exam: PRESENT: full ROM, other - Multiple scabs and abrasions scattered over the upper extremities as well as over the shoulder which does not show any sign of active infection or drainage. Left lower extremity demonstrates marked erythema as well as some active drainage from multiple wounds, and tenderness to palpation.. ABSENT: calf tenderness, clubbing, pedal edema Neurological exam: PRESENT: alert, awake, oriented to person, oriented to place , oriented to time, oriented to situation, CN II-XII grossly intact. ABSENT: motor sensory deficit Psychiatric exam: PRESENT: appropriate affect, normal mood. ABSENT: homicidal ideation, suicidal ideation Skin exam: PRESENT: dry, intact, warm. ABSENT: cyanosis, rash Results Laboratory Results: 07/16/18 09:15 Urine Color YELLOW Urine Appearance CLEAR Urine pH 6.0 Ur Specific [place] 1.008 Urine Protein NEGATIVE Urine Glucose (UA) 150 H Urine Ketones NEGATIVE Urine Blood NEGATIVE Urine Nitrite NEGATIVE Ur Leukocyte Esterase NEGATIVE Urine WBC (Auto) 0 Impressions: Tibia/Fibula X-Ray 07/16/18 02:05 IMPRESSION: No acute fracture or dislocation. 2010 [employer]- All Rights Reserved Assessment & Plan - Diagnosis (1) Sepsis Qualifiers: Sepsis type: sepsis due to unspecified organism Qualified Code(s): A41.9 - Sepsis, unspecified organism Is this a current diagnosis for this admission?: Yes Plan: Source could likely be left lower extremity cellulitis. Continue empiric IV antibiotics. Pending culture and sensitivity. (2) Heroin withdrawal Is this a current diagnosis for this admission?: Yes Plan: Continue PRN opiates. Pending psych evaluation recommendation. (3) Wound of skin Is this a current diagnosis for this admission?: Yes Plan: Wound care, continue empiric antibiotics. (4) Left leg cellulitis Plan: Continue IV empiric antibiotic. De-escalate once clinically appropriate.
[2018-07-16] MEDS: HALOPERIDOL LACTATE INJ 5 MG/1 ML VIAL IM PRN (20:59)
[2018-07-17] MEDS: HALOPERIDOL LACTATE INJ 5 MG/1 ML VIAL IM PRN (03:55)
[2018-07-17] MEDS: VANCOMYCIN HCL 1,000 MG in DEXTROSE 5%-WATER 250 ML IV SCH ×2 (09:11→17:48)
[2018-07-17] MEDS: ENOXAPARIN SODIUM INJ 40 MG/0.4 ML DISP.SYRIN SUBCUT SCH (09:12)
[2018-07-17 09:21] LABS: HEMATOCRIT 33.8 % (37.9-51.0); HEMOGLOBIN 11.6 g/dL (13.5-17.0); MEAN CORPUSCULAR HEMOGLOBIN 28.5 pg (27.0-33.4); MEAN CORPUSCULAR HGB CONC 34.3 g/dL (32.0-36.0); MEAN CORPUSCULAR VOLUME 83 fl (80-97); PLATELET COUNT 392 10^3/uL (150-450); RED BLOOD COUNT 4.07 10^6/uL (4.35-5.55); WHITE BLOOD COUNT 28.7 10^3/uL (4.0-10.5)
[2018-07-17 09:30] LABS: ALANINE AMINOTRANSFERASE 43 U/L (21-72); ALBUMIN 2.7 g/dL (3.5-5.0); ALKALINE PHOSPHATASE 144 U/L (38-126); ANION GAP 14 (5-19); ASPARTATE AMINO TRANSFERASE 38 U/L (17-59); BILIRUBIN,DIRECT 0.3 mg/dL (0.0-0.4); BILIRUBIN,TOTAL 0.7 mg/dL (0.2-1.3); BLOOD UREA NITROGEN 5 mg/dL (7-20); CALCIUM 8.5 mg/dL (8.4-10.2); CARBON DIOXIDE 21 mmol/L (22-30); CHLORIDE 100 mmol/L (98-107); GLUCOSE 126 mg/dL (75-110); POTASSIUM 3.2 mmol/L (3.6-5.0); SODIUM 134.5 mmol/L (137-145)
[2018-07-17] MEDS ORDERED: ACETAMINOPHEN 325 MG TABLET PO PRN (09:30)
[2018-07-17 10:14] LABS: ABSOLUTE MONOCYTES # (MANUAL) 0.9 10^3/uL (0.1-1.4); ABSOLUTE NEUTROPHILS# (MANUAL) 25.8 10^3/uL (1.7-8.2); ANISOCYTOSIS SLIGHT; BAND NEUTROPHILS % (MANUAL) 3 % (3-5); BASOPHILS % (MANUAL) 0 % (0-2); EOSINOPHILS % (MANUAL) 0 % (0-6); LYMPHOCYTES % (MANUAL) 7 % (13-45); MONOCYTES % (MANUAL) 3 % (3-13); PLATELET COMMENT ADEQUATE; POLYCHROMASIA SLIGHT; SEGMENTED NEUTROPHILS % (MAN) 87 % (42-78); TOTAL CELLS COUNTED 100; TOXIC GRANULATION 1+; TOXIC VACUOLATION PRESENT
[2018-07-17] MEDS ORDERED: GABAPENTIN 300 MG CAPSULE PO ONE ×2 (10:15→11:45)
[2018-07-17] MEDS: CEFTRIAXONE SODIUM 1,000 MG in NORMAL SALINE 50 ML IV SCH (11:26)
[2018-07-17] MEDS ORDERED: POTASSIUM CHLORIDE 10 MEQ CAPSULE.ER PO ONE (11:53)
[2018-07-17] MEDS ORDERED: PIPERACILLIN SODIUM/TAZOBACTAM 4.5 GM in NORMAL SALINE 100 ML IV SCH (12:00)
--- NOTE | 2018-07-17 12:05 | PDOC PROGRESS REPORT ---
Subjective Progress Note for:: 07/17/18 Subjective:: No acute events overnight patient complains of not being able to sleep overnight due to anxiety patient was given benzos and Haldol overnight. Patient is complaining of left lower extremity pain and asking for opiates. Her graft denies any fever chills nausea vomiting chest pain or shortness of breath. Reason For Visit: SEPSIS, IV DRUG ABUSE Physical Exam Vital Signs: Temp Pulse Resp BP Pulse Ox 98.8 F 73 16 110/66 96 07/17/18 00:00 07/17/18 00:00 07/17/18 00:00 07/17/18 00:00 07/17/18 00:00 Intake & Output 07/16/18 07/17/18 07/18/18 06:59 06:59 06:59 Intake Total 3486 Output Total 1402 Balance 2084 Weight 57.4 kg General appearance: PRESENT: no acute distress, well-developed, well-nourished Head exam: PRESENT: atraumatic, normocephalic Eye exam: PRESENT: conjunctiva pink, EOMI, PERRLA. ABSENT: scleral icterus Ear exam: PRESENT: normal external ear exam Mouth exam: PRESENT: moist, tongue midline Neck exam: ABSENT: carotid bruit, JVD, lymphadenopathy, thyromegaly Respiratory exam: PRESENT: clear to auscultation dona. ABSENT: rales, rhonchi, wheezes Cardiovascular exam: PRESENT: RRR. ABSENT: diastolic murmur, rubs, systolic murmur Pulses: PRESENT: normal dorsalis pedis pul Vascular exam: PRESENT: normal capillary refill GI/Abdominal exam: PRESENT: normal bowel sounds, soft. ABSENT: distended, guarding, mass, organolmegaly, rebound, tenderness Rectal exam: PRESENT: deferred Extremities exam: PRESENT: full ROM, tenderness, other - Bilateral upper extremity several scabs and abrasions. No sign of active infection or tenderness. Lower extremity cellulitis is improving no active sinus any drainage. Tenderness to palpation. ABSENT: calf tenderness, clubbing, pedal edema Neurological exam: PRESENT: alert, awake, oriented to person, oriented to place , oriented to time, oriented to situation, CN II-XII grossly intact. ABSENT: motor sensory deficit Psychiatric exam: PRESENT: anxious, appropriate affect, normal mood. ABSENT: homicidal ideation, suicidal ideation Skin exam: PRESENT: abrasion, dry, intact, warm, other - Bilateral upper extremity several scabs and abrasions. No sign of active infection or tenderness. Lower extremity cellulitis is improving no active sinus any drainage. Tenderness to palpation. ABSENT: cyanosis, rash Results Laboratory Results: 07/17/18 04:24 07/17/18 04:24 07/17/18 07/17/18 04:24 04:24 WBC 28.7 H RBC 4.07 L Hgb 11.6 L Hct 33.8 L MCV 83 MCH 28.5 MCHC 34.3 RDW 14.0 Plt Count 392 Seg Neutrophils % Not Reportable Lymphocytes % Not Reportable Monocytes % Not Reportable Eosinophils % Not Reportable Basophils % Not Reportable Absolute Neutrophils Not Reportable Absolute Lymphocytes Not Reportable Absolute Monocytes Not Reportable Absolute Eosinophils Not Reportable Absolute Basophils Not Reportable Sodium 134.5 L Potassium 3.2 L Chloride 100 Carbon Dioxide 21 L Anion Gap 14 BUN 5 L Creatinine 0.49 L Est GFR ( Amer) > 60 Est GFR (Non-Af Amer) > 60 Glucose 126 H Calcium 8.5 Magnesium 2.0 Total Bilirubin 0.7 AST 38 ALT 43 Alkaline Phosphatase 144 H Total Protein 6.0 L Albumin 2.7 L Impressions: Tibia/Fibula X-Ray 07/16/18 02:05 IMPRESSION: No acute fracture or dislocation. 2010 [employer]- All Rights Reserved Assessment & Plan - Diagnosis (1) Sepsis Qualifiers: Sepsis type: sepsis due to unspecified organism Qualified Code(s): A41.9 - Sepsis, unspecified organism Is this a current diagnosis for this admission?: Yes Plan: Leukocytosis has not improved. We will switch to Zosyn with ceftriaxone to increase the coverage. Source could likely be left lower extremity cellulitis. Continue empiric IV antibiotics. Cultures -for 24 hours (2) Heroin withdrawal Is this a current diagnosis for this admission?: Yes Plan: Continue PRN opiates. Pending psych recommendation. (3) Wound of skin Is this a current diagnosis for this admission?: Yes Plan: Wound care, continue empiric antibiotics. Does not seem infected most likely due to excessive scratching and picking (4) Left leg cellulitis Is this a current diagnosis for this admission?: Yes Plan: Improving. Continue IV empiric antibiotic. Blood cultures pending. De- escalate once clinically appropriate.
[2018-07-17] MEDS: MORPHINE SULFATE 10 MG/ML INJ IV PRN ×2 (12:58→23:32)
[2018-07-17] MEDS: PIPERACILLIN SODIUM/TAZOBACTAM 4.5 GM in NORMAL SALINE 100 ML IV SCH ×2 (14:29→20:46)
[2018-07-17] MEDS: LORAZEPAM 1 MG TABLET PO PRN (18:07)
[2018-07-17 18:43] LABS: VANCOMYCIN,TROUGH < 5.0 ug/mL (5.0-20.0)
[2018-07-17] MEDS: GABAPENTIN 300 MG CAPSULE PO SCH (23:30)
[2018-07-18] MEDS: VANCOMYCIN HCL 1,000 MG in DEXTROSE 5%-WATER 250 ML IV SCH ×3 (01:24→17:56)
[2018-07-18] MEDS: PIPERACILLIN SODIUM/TAZOBACTAM 4.5 GM in NORMAL SALINE 100 ML IV SCH ×4 (03:42→22:08)
[2018-07-18 05:36] LABS: HEMATOCRIT 34.8 % (37.9-51.0); HEMOGLOBIN 12.1 g/dL (13.5-17.0); MEAN CORPUSCULAR HEMOGLOBIN 29.3 pg (27.0-33.4); MEAN CORPUSCULAR HGB CONC 34.8 g/dL (32.0-36.0); MEAN CORPUSCULAR VOLUME 84 fl (80-97); PLATELET COUNT 358 10^3/uL (150-450); RED BLOOD COUNT 4.15 10^6/uL (4.35-5.55); RED CELL DISTRIBUTION WIDTH 14.5 % (11.5-14.0); WHITE BLOOD COUNT 22.5 10^3/uL (4.0-10.5)
[2018-07-18 05:59] LABS: ALANINE AMINOTRANSFERASE 49 U/L (21-72); ALBUMIN 2.7 g/dL (3.5-5.0); ALKALINE PHOSPHATASE 150 U/L (38-126); ANION GAP 10 (5-19); ASPARTATE AMINO TRANSFERASE 54 U/L (17-59); BILIRUBIN,DIRECT 0.4 mg/dL (0.0-0.4); BILIRUBIN,TOTAL 0.6 mg/dL (0.2-1.3); BLOOD UREA NITROGEN 7 mg/dL (7-20); CALCIUM 8.4 mg/dL (8.4-10.2); CARBON DIOXIDE 24 mmol/L (22-30); CHLORIDE 105 mmol/L (98-107); GLUCOSE 110 mg/dL (75-110); POTASSIUM 3.6 mmol/L (3.6-5.0); SODIUM 138.6 mmol/L (137-145); TOTAL PROTEIN 6.3 g/dL (6.3-8.2)
[2018-07-18 06:02] LABS: ABSOLUTE LYMPHOCYTES# (MANUAL) 5.6 10^3/uL (0.5-4.7); ABSOLUTE MONOCYTES # (MANUAL) 0.5 10^3/uL (0.1-1.4); ABSOLUTE NEUTROPHILS# (MANUAL) 16.4 10^3/uL (1.7-8.2); BAND NEUTROPHILS % (MANUAL) 4 % (3-5); BASOPHILS % (MANUAL) 0 % (0-2); EOSINOPHILS % (MANUAL) 0 % (0-6); LYMPHOCYTES % (MANUAL) 25 % (13-45); MONOCYTES % (MANUAL) 2 % (3-13); SEGMENTED NEUTROPHILS % (MAN) 69 % (42-78); TOTAL CELLS COUNTED 100
[2018-07-18 06:04] LABS: PLATELET COMMENT ADEQUATE; RBC MORPHOLOGY COMMENT NORMO-CYTIC/CHROMIC; TOXIC GRANULATION 1+; TOXIC VACUOLATION PRESENT
[2018-07-18] MEDS: DEXTROSE 5%-NORMAL SALINE 1,000 ML IV PRN ×2 (06:56→22:19)
[2018-07-18] MEDS: MORPHINE SULFATE 10 MG/ML INJ IV PRN ×3 (08:11→22:08)
[2018-07-18] MEDS ORDERED: ONDANSETRON HCL INJ/PF 4 MG/2 ML SDV IV PRN (09:28)
[2018-07-18] MEDS: PANTOPRAZOLE SODIUM 40 MG VIAL IV SCH (10:07)
[2018-07-18] MEDS: GABAPENTIN 300 MG CAPSULE PO SCH ×2 (10:08→22:08)
[2018-07-18] MEDS: IBUPROFEN 400 MG TABLET PO SCH ×3 (10:29→17:56)
[2018-07-18] MEDS: ENOXAPARIN SODIUM INJ 40 MG/0.4 ML DISP.SYRIN SUBCUT SCH (10:29)
[2018-07-18] MEDS ORDERED: MORPHINE SULFATE 10 MG/ML INJ IV SCH (12:00)
[2018-07-18] MEDS: LORAZEPAM 1 MG TABLET PO PRN (14:43)
--- NOTE | 2018-07-18 15:21 | PDOC PROGRESS REPORT ---
Subjective Progress Note for:: 07/18/18 Subjective:: Patient still complaining of left lower extremity pain generalized anxiety and left groin pain. Patient keeps asking for morphine sitting Tylenol and NSAIDs are not helping his pain. Yesterday evening the patient friend of him Reason For Visit: SEPSIS, IV DRUG ABUSE Physical Exam Vital Signs: Temp Pulse Resp BP Pulse Ox 97.8 F 55 L 15 111/54 L 100 07/18/18 11:04 07/18/18 11:04 07/18/18 11:04 07/18/18 11:04 07/18/18 11:04 Intake & Output 07/17/18 07/18/18 07/19/18 06:59 06:59 06:59 Intake Total 3486 2477 350 Output Total 1402 Balance 2084 2477 350 Weight 57.4 kg 57.6 kg General appearance: PRESENT: no acute distress, well-developed, well-nourished Head exam: PRESENT: atraumatic, normocephalic Eye exam: PRESENT: conjunctiva pink, EOMI, PERRLA. ABSENT: scleral icterus Ear exam: PRESENT: normal external ear exam Mouth exam: PRESENT: moist, tongue midline Neck exam: ABSENT: carotid bruit, JVD, lymphadenopathy, thyromegaly Respiratory exam: PRESENT: clear to auscultation dona. ABSENT: rales, rhonchi, wheezes Cardiovascular exam: PRESENT: RRR. ABSENT: diastolic murmur, rubs, systolic murmur Pulses: PRESENT: normal dorsalis pedis pul Vascular exam: PRESENT: normal capillary refill GI/Abdominal exam: PRESENT: normal bowel sounds, soft. ABSENT: distended, guarding, mass, organolmegaly, rebound, tenderness Rectal exam: PRESENT: deferred Gentrourinary exam: PRESENT: other - Left groin tenderness, testicles are not tender unlikely this is testicular torsion. Extremities exam: PRESENT: full ROM. ABSENT: calf tenderness, clubbing, pedal edema Neurological exam: PRESENT: alert, awake, oriented to person, oriented to place , oriented to time, oriented to situation, CN II-XII grossly intact. ABSENT: motor sensory deficit Psychiatric exam: PRESENT: appropriate affect, normal mood. ABSENT: homicidal ideation, suicidal ideation Skin exam: PRESENT: dry, intact, warm, other - Left lower extremity cellulitis improving however still very tender to palpation no active sign of infection or any discharge. Several upper extremity scabs which could have been due to obsessive thinking has also improved.. ABSENT: cyanosis, rash Results Laboratory Results: 07/18/18 04:50 07/18/18 04:50 07/18/18 07/18/18 04:50 04:50 WBC 22.5 H RBC 4.15 L Hgb 12.1 L Hct 34.8 L MCV 84 MCH 29.3 MCHC 34.8 RDW 14.5 H Plt Count 358 Seg Neutrophils % Not Reportable Lymphocytes % Not Reportable Monocytes % Not Reportable Eosinophils % Not Reportable Basophils % Not Reportable Absolute Neutrophils Not Reportable Absolute Lymphocytes Not Reportable Absolute Monocytes Not Reportable Absolute Eosinophils Not Reportable Absolute Basophils Not Reportable Sodium 138.6 Potassium 3.6 Chloride 105 Carbon Dioxide 24 Anion Gap 10 BUN 7 Creatinine 0.67 Est GFR ( Amer) > 60 Est GFR (Non-Af Amer) > 60 Glucose 110 Calcium 8.4 Magnesium 2.1 Total Bilirubin 0.6 AST 54 ALT 49 Alkaline Phosphatase 150 H Total Protein 6.3 Albumin 2.7 L Impressions: Tibia/Fibula X-Ray 07/16/18 02:05 IMPRESSION: No acute fracture or dislocation. 2010 [employer]- All Rights Reserved Assessment & Plan - Diagnosis (1) Sepsis Qualifiers: Sepsis type: sepsis due to unspecified organism Qualified Code(s): A41.9 - Sepsis, unspecified organism Is this a current diagnosis for this admission?: Yes Plan: Leukocytosis has not improved. We will switch to Zosyn with ceftriaxone to increase the coverage. Source could likely be left lower extremity cellulitis. Continue empiric IV antibiotics. Cultures -for 24 hours (2) Heroin withdrawal Is this a current diagnosis for this admission?: Yes Plan: Lower as needed opiates and benzos. Pending psych final recommendation on placement. Patient has been having symptoms of withdrawal however he came with sepsis and very bad leukocytosis due to the fact patient has been given low doses of opiates. Once leukocytosis, sepsis, cellulitis has improved will stop opiates and benzos so psychiatry can have a better assessment of his mental status. (3) Wound of skin Is this a current diagnosis for this admission?: Yes Plan: Wound care, continue empiric antibiotics. Does not seem infected most likely due to excessive scratching and picking (4) Left leg cellulitis Is this a current diagnosis for this admission?: Yes Plan: Improving. Continue IV empiric antibiotic. Blood cultures pending. De- escalate once clinically appropriate. (5) Opiate abuse, continuous Is this a current diagnosis for this admission?: Yes Plan: Chronic history of opiate abuse. Currently patient is withdrawing and he has been given low-dose opiates because of the fact that he came septic and he has been having leukocytosis and left leg cellulitis. Once left leg cellulitis leukocytosis and sepsis have improved will stop opiates. (6) Left groin pain Is this a current diagnosis for this admission?: Yes Plan: Unlikely epididymitis or testicular torsion. Pending testicular ultrasound.
[2018-07-18] MEDS ORDERED: LORAZEPAM INJ 2 MG/1 ML VIAL IV ONE (22:00)
--- NOTE | 2018-07-19 00:32 | RADIOLOGY REPORT (SQ) ---
EXAM DESCRIPTION: US SCROTUM COMPLETED DATE/TME: 07/18/2018 00:00 CLINICAL HISTORY: 32 years Male, testicular pain. COMPARISON: None. TECHNIQUE: Real-time sonographic images of the scrotal contents obtained using a linear multi hertz transducer. Color and spectral Doppler imaging was also obtained. FINDINGS: Testicles: The right testicle measures 4.0 x 3.3 x 1.8 cm. The left testicle measures 4.1 x 3.0 x 1.9 cm. No solid intratesticular mass identified. Homogenous echogenicity of the testicles. Epididymis:No abnormalities of the epididymis. Hydrocele: Small bilateral hydroceles. Blood flow:Normal arterial and venous blood flow identified bilaterally. Other:No additional findings. IMPRESSION: 1. Normal blood flow identified bilaterally. 2. Small bilateral hydroceles.
[2018-07-19] MEDS: VANCOMYCIN HCL 1,000 MG in DEXTROSE 5%-WATER 250 ML IV SCH ×4 (03:22→23:30)
[2018-07-19] MEDS: MORPHINE SULFATE 10 MG/ML INJ IV PRN (03:37)
[2018-07-19] MEDS: LORAZEPAM 1 MG TABLET PO PRN ×3 (03:38→19:41)
[2018-07-19 04:28] LABS: MEAN CORPUSCULAR HEMOGLOBIN 28.8 pg (27.0-33.4); MEAN CORPUSCULAR HGB CONC 34.3 g/dL (32.0-36.0); MEAN CORPUSCULAR VOLUME 84 fl (80-97); PLATELET COUNT 403 10^3/uL (150-450); RED BLOOD COUNT 3.81 10^6/uL (4.35-5.55); RED CELL DISTRIBUTION WIDTH 14.3 % (11.5-14.0); WHITE BLOOD COUNT 18.1 10^3/uL (4.0-10.5)
[2018-07-19 04:36] LABS: ALANINE AMINOTRANSFERASE 58 U/L (21-72); ALBUMIN 2.5 g/dL (3.5-5.0); ALKALINE PHOSPHATASE 161 U/L (38-126); ANION GAP 5 (5-19); ASPARTATE AMINO TRANSFERASE 40 U/L (17-59); BILIRUBIN,DIRECT 0.2 mg/dL (0.0-0.4); BILIRUBIN,TOTAL 0.3 mg/dL (0.2-1.3); BLOOD UREA NITROGEN 8 mg/dL (7-20); CALCIUM 8.2 mg/dL (8.4-10.2); CARBON DIOXIDE 28 mmol/L (22-30); CHLORIDE 107 mmol/L (98-107); GLUCOSE 124 mg/dL (75-110); POTASSIUM 3.3 mmol/L (3.6-5.0); SODIUM 139.8 mmol/L (137-145); TOTAL PROTEIN 5.9 g/dL (6.3-8.2)
[2018-07-19 05:01] LABS: ABSOLUTE LYMPHOCYTES# (MANUAL) 4.7 10^3/uL (0.5-4.7); ABSOLUTE MONOCYTES # (MANUAL) 0.5 10^3/uL (0.1-1.4); ABSOLUTE NEUTROPHILS# (MANUAL) 12.7 10^3/uL (1.7-8.2); BASOPHILS % (MANUAL) 0 % (0-2); EOSINOPHILS % (MANUAL) 1 % (0-6); LYMPHOCYTES % (MANUAL) 26 % (13-45); MONOCYTES % (MANUAL) 3 % (3-13); SEGMENTED NEUTROPHILS % (MAN) 68 % (42-78); TOTAL CELLS COUNTED 100
[2018-07-19 05:04] LABS: ANISOCYTOSIS SLIGHT; HELMET CELLS SLIGHT; OVALOCYTES 1+; PLATELET COMMENT ADEQUATE; POIKILOCYTOSIS 1+; PROMYELOCYTES % (MANUAL) 2 % (0); TEAR DROP CELLS SLIGHT; TOXIC GRANULATION 1+; TOXIC VACUOLATION PRESENT
[2018-07-19] MEDS: PIPERACILLIN SODIUM/TAZOBACTAM 4.5 GM in NORMAL SALINE 100 ML IV SCH ×4 (05:04→20:53)
[2018-07-19] MEDS ORDERED: MORPHINE SULFATE 10 MG/ML INJ IV PRN ×2 (08:35→11:39)
[2018-07-19] MEDS ORDERED: POTASSIUM CHLORIDE 10 MEQ CAPSULE.ER PO PRN (08:36)
[2018-07-19] MEDS: ENOXAPARIN SODIUM INJ 40 MG/0.4 ML DISP.SYRIN SUBCUT SCH (09:22)
[2018-07-19] MEDS: IBUPROFEN 400 MG TABLET PO SCH ×3 (09:22→17:30)
[2018-07-19] MEDS: PANTOPRAZOLE SODIUM 40 MG VIAL IV SCH (09:23)
[2018-07-19] MEDS: GABAPENTIN 300 MG CAPSULE PO SCH ×2 (09:23→21:01)
--- NOTE | 2018-07-19 10:25 | RADIOLOGY REPORT (SQ) ---
EXAM DESCRIPTION: CT LEFT LOWER EXTREMITY WITH COMPLETED DATE/TIME: 07/19/2018 9:08 am FINDINGS: There is evidence of diffuse skin thickening over the left lower extremity with reticular edema within the subcutaneous fat. Loss of normal fascial planes between muscles of the left lower l eg are noted. Crescentic fluid collections surround the muscles particularly anterolaterally extendi ng over the right lower leg to the ankle. There is fascial enhancement noted. No soft tissue air or focal abscess identified. TECHNIQUE: Postcontrast axial imaging performed through the left lower leg with reformatted coronal and sagittal imaging windowed for bone and soft tissues. Images saved to PACS. All CT scanners at this facility use dose modulation, iterative reconstruction, and/or weight based d osing when appropriate to reduce radiation dose to as low as reasonably achievable (ALARA). [facility]: Dose Right [facility]: CareDose [facility]: Dose Right [facility]: Teradose 4D [facility]: [employer] CT scan of left lower extremity performed without intravenous contrast. Images reviewed with soft ti ssue and bone windows. Reconstructed coronal and sagittal MPR images reviewed. All images stored on PACS. CONTRAST TYPE AND DOSE: contrast/concentration: Isovue 350.00 mg/ml; Total Contrast Delivered: 80.0 ml; Total Saline Delivered: 80.0 ml RENAL FUNCTION: Creatinine: 0.65. LIMITATIONS: None. RADIATION DOSE: CT Rad equipment meets quality standard of care and radiation dose reduction techniq ues were employed. CTDIvol: 4.1 mGy. DLP: 199 mGy-cm.mGy. IMPRESSION: Findings which are consistent with necrotizing fasciitis left lower leg. REASON FOR STUDY: concern for necrotizing facitis . History of drug abuse. COMPARISON: None. COMMENT: The report was called to the ordering physician Dr. Merchant at 1015 hours. TECHNICAL DOCUMENTATION: JOB ID: [id number] Quality ID # [id number]: Final reports with documentation of one or more dose reduction techniques (e.g., Au tomated exposure control, adjustment of the mA and/or kV according to patient size, use of iterative reconstruction technique) 2010 [employer]- All Rights Reserved Reading location - IP/workstation name: [email or web address]
[2018-07-19 11:14] LABS: VANCOMYCIN,TROUGH 10.7 ug/mL (5.0-20.0)
[2018-07-19] MEDS ORDERED: MIDAZOLAM 2 MG/2 ML INJ ONE (11:23)
[2018-07-19] MEDS ORDERED: LIDOCAINE 2% INJ-PF (100 MG/5 ML) SYRINGE ONE (11:23)
[2018-07-19] MEDS ORDERED: FENTANYL CITRATE INJ/PF 100 MCG/2 ML AMPUL ONE (11:23)
[2018-07-19] MEDS ORDERED: DEXAMETHASONE SOD PHOSPHATE INJ 4 MG/1 ML VIAL ONE (11:24)
[2018-07-19] MEDS ORDERED: PROPOFOL INJ 200 MG/20 ML VIAL IV ONE (11:24)
[2018-07-19] MEDS ORDERED: ACETAMINOPHEN 1,000 MG/100 ML RTUPB IV ONE (11:24)
[2018-07-19] MEDS ORDERED: ONDANSETRON HCL INJ/PF 4 MG/2 ML SDV ONE (11:24)
[2018-07-19] MEDS ORDERED: LIDOCAINE 0.5% INJ-PF (5 MG/ML) 50 ML SDV ONE (11:42)
--- NOTE | 2018-07-19 13:16 | PDOC PROGRESS REPORT ---
Subjective Progress Note for:: 07/19/18 Subjective:: Patient complaining of worsening left lower extremity pain. Groin pain has resolved. Patient still asking for opiates and benzos. Hir mother is a staying with him who is asking for his family to be able to visit him today. Patient denies any fever, chills, nausea, vomiting, abdominal pain, diarrhea, constipation. Reason For Visit: SEPSIS, IV DRUG ABUSE Physical Exam Vital Signs: Temp Pulse Resp BP Pulse Ox 99.1 F 90 18 114/68 100 07/19/18 11:20 07/19/18 11:20 07/19/18 11:20 07/19/18 07:36 07/19/18 11:20 Intake & Output 07/18/18 07/19/18 07/20/18 06:59 06:59 06:59 Intake Total 2477 3102 1350 Balance 2477 3102 1350 Weight 57.6 kg 57.6 kg General appearance: PRESENT: no acute distress, well-developed, well-nourished Head exam: PRESENT: atraumatic, normocephalic Eye exam: PRESENT: conjunctiva pink, EOMI, PERRLA. ABSENT: scleral icterus Ear exam: PRESENT: normal external ear exam Mouth exam: PRESENT: moist, tongue midline Neck exam: ABSENT: carotid bruit, JVD, lymphadenopathy, thyromegaly Respiratory exam: PRESENT: clear to auscultation dona. ABSENT: rales, rhonchi, wheezes Cardiovascular exam: PRESENT: RRR. ABSENT: diastolic murmur, rubs, systolic murmur Pulses: PRESENT: normal dorsalis pedis pul Vascular exam: PRESENT: normal capillary refill GI/Abdominal exam: PRESENT: normal bowel sounds, soft. ABSENT: distended, guarding, mass, organolmegaly, rebound, tenderness Rectal exam: PRESENT: deferred Extremities exam: PRESENT: full ROM, other - Less lower extremity looks less erythematous however it is very tender to palpation and looks very tense. Bilateral upper extremity scabs are improving. No signs of infection.. ABSENT : calf tenderness, clubbing, pedal edema Neurological exam: PRESENT: alert, awake, oriented to person, oriented to place , oriented to time, oriented to situation, CN II-XII grossly intact. ABSENT: motor sensory deficit Psychiatric exam: PRESENT: appropriate affect, normal mood. ABSENT: homicidal ideation, suicidal ideation Focused psych exam: PRESENT: restlessness Skin exam: PRESENT: dry, intact, warm. ABSENT: cyanosis, rash Results Laboratory Results: 07/19/18 04:15 07/19/18 09:50 07/19/18 07/19/18 07/19/18 04:15 04:15 09:50 WBC 18.1 H RBC 3.81 L Hgb 11.0 L Hct 32.0 L MCV 84 MCH 28.8 MCHC 34.3 RDW 14.3 H Plt Count 403 Seg Neutrophils % Not Reportable Lymphocytes % Not Reportable Monocytes % Not Reportable Eosinophils % Not Reportable Basophils % Not Reportable Absolute Neutrophils Not Reportable Absolute Lymphocytes Not Reportable Absolute Monocytes Not Reportable Absolute Eosinophils Not Reportable Absolute Basophils Not Reportable Sodium 139.8 Potassium 3.3 L Chloride 107 Carbon Dioxide 28 Anion Gap 5 BUN 8 Creatinine 0.65 0.62 Est GFR ( Amer) > 60 > 60 Est GFR (Non-Af Amer) > 60 > 60 Glucose 124 H Calcium 8.2 L Total Bilirubin 0.3 AST 40 ALT 58 Alkaline Phosphatase 161 H Total Protein 5.9 L Albumin 2.5 L Impressions: Tibia/Fibula X-Ray 07/16/18 02:05 IMPRESSION: No acute fracture or dislocation. 2011 [employer]- All Rights Reserved Scrotum Ultrasound 07/18/18 00:00 IMPRESSION: 1. Normal blood flow identified bilaterally. 2. Small bilateral hydroceles. Lower Extremity CT 07/19/18 00:00 IMPRESSION: Findings which are consistent with necrotizing fasciitis left lower leg. Assessment & Plan - Diagnosis (1) Necrotizing fasciitis Is this a current diagnosis for this admission?: Yes Plan: Initial impression of left lower extremity cellulitis but because of the fact that patient was not improving and his pain was out of proportion to physical examination criticizing fasciitis was suspected a CT was done which was confirmed that patient most likely has necrotizing fasciitis. Cultures have been negative and leukocytosis is improving. Surgery was consulted and patient was taken to the OR immediately. Will continue broad spectrum antibiotics and follow-up cultures. (2) Sepsis Qualifiers: Sepsis type: sepsis due to unspecified organism Qualified Code(s): A41.9 - Sepsis, unspecified organism Is this a current diagnosis for this admission?: Yes Plan: Most likely due to left lower extremity infection.. Continue empiric IV antibiotics. Pending culture and sensitivity. (3) Heroin withdrawal Is this a current diagnosis for this admission?: Yes Plan: Continue PRN opiates. Pending psych evaluation recommendation. (4) Wound of skin Is this a current diagnosis for this admission?: Yes Plan: Wound care, continue empiric antibiotics. (5) Left leg cellulitis Is this a current diagnosis for this admission?: Yes Plan: Left lower extremity cellulitis/necrotizing fasciitis or a combination of both. Continue empiric antibiotics.
[2018-07-19] MEDS ORDERED: DEXMEDETOMIDINE INJ 80 MCG/20 ML VIAL IV ONE (13:22)
--- NOTE | 2018-07-19 15:30 | OPERATIVE REPORT E ---
Operative Report NAME: TANYA VILLAR : 1985 AGE: 32Y DATE OF SURGERY: 07/19/2018 ROOM: 537 PREOPERATIVE DIAGNOSIS: Abscess of the left lower leg with fascitis. POSTOPERATIVE DIAGNOSIS: Abscess of the left lower leg. OPERATION: Incision and drainage of abscess of the left lower leg with pulse lavage. Abscess cavity site measures 20 cm long x 4 cm wide x 1.5 cm deep, down to the fascia. SURGEON: BRAD LANG M.D. ANESTHESIA: General. INDICATION: This is a 32-year-old male with history of lower leg infection. Claims he injured his left lower leg about a week ago. He had been helping a friend on the beach and occasionally would go down to the water. He was admitted on 07/16/2018 because of pain and redness along the left lower leg which is noted to be increasing. Today, he had a CT scan of the left lower leg which showed abscess with necrotizing fascitis. DESCRIPTION OF PROCEDURE: After adequate general anesthesia, the patient was placed in the supine position and the left lower leg prepped and draped in the usual sterile fashion. Appropriate timeout was then called. Next, the patient had a scab that is quite deep in the mid lateral leg that was excised. This roughly measured about 2 cm in diameter. Beneath there was some pus, and on finger palpation underneath the skin, the abscess cavity tracks down to just above the area of the ankle. A longitudinal incision was made over the skin into the abscess cavity. The abscess cavity also tracks proximally towards the area of the knee, and again with finger dissection, the cavity was further incised through the skin. Cultures were then obtained. Hemostasis obtained with cautery through the skin and subcutaneous area. The fascia itself appears to be not involved. The area was then pulse lavaged with at least a liter of saline. Following this, the fascia definitely has fair granulation tissue and quite pink and therefore not involved with the abscess. The abscess cavity was subsequently packed with 1/2-inch Iodoform gauze x2 bottles. Sutures of 2-0 nylon were placed and left untied for potential closure of the wound in about 3 days after removal of the packing. Sterile dressings were then placed over the operative site. Needle, instrument, and sponge count were all correct. Estimated blood loss about 20 mL. DICTATING PHYSICIAN: BRAD LANG M.D. [id number] PHY#: [id number] ID: [id number] JOB#: [id number] ACCT: [id number] cc:BRAD LANG M.D. > [facility]
[2018-07-19 17:09] LABS: ANION GAP 6 (5-19); BLOOD UREA NITROGEN 6 mg/dL (7-20); CALCIUM 8.6 mg/dL (8.4-10.2); CARBON DIOXIDE 28 mmol/L (22-30); CHLORIDE 107 mmol/L (98-107); CREATINE KINASE 28 U/L (55-170); GLUCOSE 115 mg/dL (75-110); POTASSIUM 3.8 mmol/L (3.6-5.0)
[2018-07-19] MEDS: KETOROLAC TROMETHAMINE INJ/PF 30 MG/1 ML SDV IV SCH (17:14)
[2018-07-19] MEDS ORDERED: POTASSIUM CHLORIDE 10 MEQ CAPSULE.ER PO ONE (19:00)
[2018-07-19] MEDS: HYDROMORPHONE HCL INJ/PF 2 MG/ML AMPULE IV PRN ×2 (19:40→23:30)
[2018-07-19] MEDS ORDERED: NICOTINE 21 MG/24 HR PATCH.TD24 TD ONE (20:15)
[2018-07-19] MEDS: DEXTROSE 5%-NORMAL SALINE 1,000 ML IV PRN (20:58)
[2018-07-19] MEDS: HALOPERIDOL LACTATE INJ 5 MG/1 ML VIAL IM PRN (23:32)
[2018-07-20] MEDS: KETOROLAC TROMETHAMINE INJ/PF 30 MG/1 ML SDV IV SCH ×3 (01:45→17:41)
[2018-07-20] MEDS: HYDROMORPHONE HCL INJ/PF 2 MG/ML AMPULE IV PRN ×4 (03:20→22:28)
[2018-07-20] MEDS: PIPERACILLIN SODIUM/TAZOBACTAM 4.5 GM in NORMAL SALINE 100 ML IV SCH ×4 (03:21→22:28)
[2018-07-20] MEDS: LORAZEPAM 1 MG TABLET PO PRN ×2 (05:35→20:03)
[2018-07-20] MEDS: VANCOMYCIN HCL 1,000 MG in DEXTROSE 5%-WATER 250 ML IV SCH ×3 (05:35→17:42)
[2018-07-20 06:08] LABS: ALANINE AMINOTRANSFERASE 50 U/L (21-72); ALBUMIN 2.4 g/dL (3.5-5.0); ALKALINE PHOSPHATASE 128 U/L (38-126); ANION GAP 8 (5-19); ASPARTATE AMINO TRANSFERASE 26 U/L (17-59); BILIRUBIN,DIRECT 0.2 mg/dL (0.0-0.4); BILIRUBIN,TOTAL 0.4 mg/dL (0.2-1.3); BLOOD UREA NITROGEN 9 mg/dL (7-20); CALCIUM 8.3 mg/dL (8.4-10.2); CARBON DIOXIDE 25 mmol/L (22-30); CHLORIDE 106 mmol/L (98-107); GLUCOSE 137 mg/dL (75-110); SODIUM 138.9 mmol/L (137-145); TOTAL PROTEIN 5.7 g/dL (6.3-8.2)
[2018-07-20 09:34] LABS: HEMATOCRIT 30.2 % (37.9-51.0); HEMOGLOBIN 10.3 g/dL (13.5-17.0); MEAN CORPUSCULAR HEMOGLOBIN 29.1 pg (27.0-33.4); MEAN CORPUSCULAR HGB CONC 34.2 g/dL (32.0-36.0); MEAN CORPUSCULAR VOLUME 85 fl (80-97); PLATELET COUNT 413 10^3/uL (150-450); RED BLOOD COUNT 3.55 10^6/uL (4.35-5.55); RED CELL DISTRIBUTION WIDTH 14.4 % (11.5-14.0); WHITE BLOOD COUNT 16.9 10^3/uL (4.0-10.5)
[2018-07-20 09:53] LABS: ABSOLUTE LYMPHOCYTES# (MANUAL) 2.7 10^3/uL (0.5-4.7); ABSOLUTE MONOCYTES # (MANUAL) 0.2 10^3/uL (0.1-1.4); ABSOLUTE NEUTROPHILS# (MANUAL) 13.9 10^3/uL (1.7-8.2); BASOPHILS % (MANUAL) 1 % (0-2); EOSINOPHILS % (MANUAL) 0 % (0-6); LYMPHOCYTES % (MANUAL) 16 % (13-45); METAMYELOCYTES % (MANUAL) 1 % (0); MONOCYTES % (MANUAL) 1 % (3-13); SEGMENTED NEUTROPHILS % (MAN) 81 % (42-78); TOTAL CELLS COUNTED 100
[2018-07-20 09:54] LABS: ANISOCYTOSIS SLIGHT; PLATELET COMMENT ADEQUATE; PLATELET LARGE PRESENT; TOXIC GRANULATION 2+
[2018-07-20] MEDS: GABAPENTIN 300 MG CAPSULE PO SCH ×2 (10:35→22:28)
[2018-07-20] MEDS: ENOXAPARIN SODIUM INJ 40 MG/0.4 ML DISP.SYRIN SUBCUT SCH (11:00)
[2018-07-20] MEDS: PANTOPRAZOLE SODIUM 40 MG VIAL IV SCH (11:00)
--- NOTE | 2018-07-20 11:04 | PDOC PROGRESS REPORT ---
Subjective Subjective:: Left lower extremity pain improving since the surgery,but consistently asking for opioids. Denies any fever, chills, nausea, vomiting, abdominal pain, chest pain, shortness of breath, diarrhea, constipation or any urinary symptoms Reason For Visit: LLE FASCIITIS,LLE CELLULITIS Physical Exam Vital Signs: Temp Pulse Resp BP Pulse Ox 97.4 F 81 18 115/79 100 07/20/18 07:33 07/20/18 07:33 07/20/18 07:33 07/20/18 07:33 07/20/18 07:33 Intake & Output 07/19/18 07/20/18 07/21/18 06:59 06:59 06:59 Intake Total 3102 4641 250 Output Total 1710 Balance 3102 2931 250 Weight 57.6 kg 64.1 kg General appearance: PRESENT: no acute distress, well-developed, well-nourished Head exam: PRESENT: atraumatic, normocephalic Eye exam: PRESENT: conjunctiva pink, EOMI, PERRLA. ABSENT: scleral icterus Ear exam: PRESENT: normal external ear exam Mouth exam: PRESENT: moist, tongue midline Neck exam: ABSENT: carotid bruit, JVD, lymphadenopathy, thyromegaly Respiratory exam: PRESENT: clear to auscultation dona. ABSENT: rales, rhonchi, wheezes Cardiovascular exam: PRESENT: RRR. ABSENT: diastolic murmur, rubs, systolic murmur Pulses: PRESENT: normal dorsalis pedis pul Vascular exam: PRESENT: normal capillary refill GI/Abdominal exam: PRESENT: normal bowel sounds, soft. ABSENT: distended, guarding, mass, organolmegaly, rebound, tenderness Rectal exam: PRESENT: deferred Extremities exam: PRESENT: full ROM. ABSENT: calf tenderness, clubbing, pedal edema Neurological exam: PRESENT: alert, awake, oriented to person, oriented to place , oriented to time, oriented to situation, CN II-XII grossly intact. ABSENT: motor sensory deficit Psychiatric exam: PRESENT: appropriate affect, normal mood. ABSENT: homicidal ideation, suicidal ideation Skin exam: PRESENT: dry, intact, warm. ABSENT: cyanosis, rash Results Laboratory Results: 07/20/18 05:14 07/20/18 05:14 07/19/18 07/19/18 07/20/18 09:50 16:37 05:14 WBC RBC Hgb Hct MCV MCH MCHC RDW Plt Count Seg Neutrophils % Lymphocytes % Monocytes % Eosinophils % Basophils % Absolute Neutrophils Absolute Lymphocytes Absolute Monocytes Absolute Eosinophils Absolute Basophils Sodium 141.0 138.9 Potassium 3.8 4.0 Chloride 107 106 Carbon Dioxide 28 25 Anion Gap 6 8 BUN 6 L 9 Creatinine 0.62 0.62 0.71 Est GFR ( Amer) > 60 > 60 > 60 Est GFR (Non-Af Amer) > 60 > 60 > 60 Glucose 115 H 137 H Calcium 8.6 8.3 L Total Bilirubin 0.4 AST 26 ALT 50 Alkaline Phosphatase 128 H Total Protein 5.7 L Albumin 2.4 L 07/20/18 05:14 WBC 16.9 H RBC 3.55 L Hgb 10.3 L Hct 30.2 L MCV 85 MCH 29.1 MCHC 34.2 RDW 14.4 H Plt Count 413 Seg Neutrophils % Not Reportable Lymphocytes % Not Reportable Monocytes % Not Reportable Eosinophils % Not Reportable Basophils % Not Reportable Absolute Neutrophils Not Reportable Absolute Lymphocytes Not Reportable Absolute Monocytes Not Reportable Absolute Eosinophils Not Reportable Absolute Basophils Not Reportable Sodium Potassium Chloride Carbon Dioxide Anion Gap BUN Creatinine Est GFR ( Amer) Est GFR (Non-Af Amer) Glucose Calcium Total Bilirubin AST ALT Alkaline Phosphatase Total Protein Albumin 07/19/18 16:37 Creatine Kinase 28 L Impressions: Tibia/Fibula X-Ray 07/16/18 02:05 IMPRESSION: No acute fracture or dislocation. 2010 [employer]- All Rights Reserved Scrotum Ultrasound 07/18/18 00:00 IMPRESSION: 1. Normal blood flow identified bilaterally. 2. Small bilateral hydroceles. Lower Extremity CT 07/19/18 00:00 IMPRESSION: Findings which are consistent with necrotizing fasciitis left lower leg. Assessment & Plan - Diagnosis (1) Necrotizing fasciitis Is this a current diagnosis for this admission?: Yes Plan: Initial impression of left lower extremity cellulitis but because of the fact that patient was not improving and his pain was out of proportion to physical examination criticizing fasciitis was suspected a CT was done which was confirmed that patient most likely has necrotizing fasciitis. Cultures have been negative and leukocytosis is improving. Status post surgery on 07/19/2018. Pain improving. Will continue broad spectrum antibiotics. Preliminary wound culture positive gram-positive cocci in clusters. Pending sensitivity (2) Sepsis Qualifiers: Sepsis type: sepsis due to unspecified organism Qualified Code(s): A41.9 - Sepsis, unspecified organism Is this a current diagnosis for this admission?: Yes Plan: Most likely due to left lower extremity infection.. Continue empiric IV antibiotics. Pending culture and sensitivity. (3) Heroin withdrawal Is this a current diagnosis for this admission?: Yes Plan: Continue PRN opiates due to left lower extremity pain because of necrotizing fasciitis. Pending psych evaluation recommendation. (4) Wound of skin Is this a current diagnosis for this admission?: Yes Plan: Wound care, continue empiric antibiotics. (5) Left leg cellulitis Is this a current diagnosis for this admission?: Yes Plan: Left lower extremity cellulitis/necrotizing fasciitis or a combination of both. Continue empiric antibiotics.
[2018-07-20] MEDS: HALOPERIDOL LACTATE INJ 5 MG/1 ML VIAL IM PRN (16:26)
[2018-07-20] MEDS ORDERED: HYDROMORPHONE HCL INJ/PF 2 MG/ML AMPULE IV PRN ×3 (16:30→16:44)
[2018-07-20] MEDS ORDERED: HYDROMORPHONE HCL INJ/PF 2 MG/ML AMPULE IV ONE (20:00)
[2018-07-20] MEDS: NICOTINE 21 MG/24 HR PATCH.TD24 TD SCH (22:29)
--- NOTE | 2018-07-20 22:30 | PDOC PROGRESS REPORT ---
Subjective Progress Note for:: 07/20/18 Subjective:: C/O a lot of pains along incision site. Reason For Visit: LLE FASCIITIS,LLE CELLULITIS Physical Exam Vital Signs: Temp Pulse Resp BP Pulse Ox 97.6 F 70 18 133/81 H 100 07/20/18 20:08 07/20/18 20:08 07/20/18 20:08 07/20/18 20:08 07/20/18 20:08 Intake & Output 07/19/18 07/20/18 07/21/18 06:59 06:59 06:59 Intake Total 3102 4641 3001 Output Total 1710 950 Balance 3102 2931 2051 Weight 57.6 kg 64.1 kg Exam: Outside dressings removed. Packing in place without drainage and left in place for possible removal in 24-48 hrs then delayed primary closure with left over sutures that were left untied in the OR. Was rewrapped with Kerlix over sterile ABD pads. Surrounding inflammation and swelling are decreasing Results Laboratory Results: 07/20/18 05:14 07/20/18 05:14 07/20/18 07/20/18 05:14 05:14 WBC 16.9 H RBC 3.55 L Hgb 10.3 L Hct 30.2 L MCV 85 MCH 29.1 MCHC 34.2 RDW 14.4 H Plt Count 413 Seg Neutrophils % Not Reportable Lymphocytes % Not Reportable Monocytes % Not Reportable Eosinophils % Not Reportable Basophils % Not Reportable Absolute Neutrophils Not Reportable Absolute Lymphocytes Not Reportable Absolute Monocytes Not Reportable Absolute Eosinophils Not Reportable Absolute Basophils Not Reportable Sodium 138.9 Potassium 4.0 Chloride 106 Carbon Dioxide 25 Anion Gap 8 BUN 9 Creatinine 0.71 Est GFR ( Amer) > 60 Est GFR (Non-Af Amer) > 60 Glucose 137 H Calcium 8.3 L Total Bilirubin 0.4 AST 26 ALT 50 Alkaline Phosphatase 128 H Total Protein 5.7 L Albumin 2.4 L 07/19/18 16:37 Creatine Kinase 28 L Impressions: Tibia/Fibula X-Ray 07/16/18 02:05 IMPRESSION: No acute fracture or dislocation. 2010 [employer]- All Rights Reserved Scrotum Ultrasound 07/18/18 00:00 IMPRESSION: 1. Normal blood flow identified bilaterally. 2. Small bilateral hydroceles. Lower Extremity CT 07/19/18 00:00 IMPRESSION: Findings which are consistent with necrotizing fasciitis left lower leg. Assessment & Plan - Diagnosis (1) Abscess Is this a current diagnosis for this admission?: Yes - Time Time Spent with patient: 15-24 minutes - Inpatient Certification Medical Necessity: Need for Pain Control, Need for IV Antibiotics - Plan Summary Plan Summary: Patient's pain maybe out of proportion to his condition considering the abscess was already evacuated. He has a history of drug addiction and most likely has low tolerance for pain. He has been asking for a higher dose of Dilaudid and threatened to sign AMA if not given more pain meds. Mom called patient's father at bedside and i talked to her on the phone. She is pleading to keep her son in hospital because he will likely go to the street to get heroin and may get overdose. She already has a son who last year from drug overdose. She will go to a [employer] tomorrow to declare her son incompetent so she herself will make decisions for him which will be to get him committed. I explained above to Hospitalist that patient is admitted to. She just ordered a dose of Dilaudid then she will re-evaluate patient later.
[2018-07-21] MEDS: DEXTROSE 5%-NORMAL SALINE 1,000 ML IV PRN ×2 (00:05→15:27)
[2018-07-21] MEDS: VANCOMYCIN HCL 1,000 MG in DEXTROSE 5%-WATER 250 ML IV SCH ×3 (00:05→12:11)
[2018-07-21] MEDS: HYDROMORPHONE HCL INJ/PF 2 MG/ML AMPULE IV PRN ×7 (01:28→22:22)
[2018-07-21] MEDS: KETOROLAC TROMETHAMINE INJ/PF 30 MG/1 ML SDV IV SCH ×3 (03:12→18:29)
[2018-07-21] MEDS: PIPERACILLIN SODIUM/TAZOBACTAM 4.5 GM in NORMAL SALINE 100 ML IV SCH ×4 (03:13→22:24)
[2018-07-21] MEDS: LORAZEPAM 1 MG TABLET PO PRN (05:07)
[2018-07-21 06:02] LABS: HEMOGLOBIN 10.7 g/dL (13.5-17.0); MEAN CORPUSCULAR HEMOGLOBIN 29.2 pg (27.0-33.4); MEAN CORPUSCULAR HGB CONC 34.7 g/dL (32.0-36.0); MEAN CORPUSCULAR VOLUME 84 fl (80-97); PLATELET COUNT 449 10^3/uL (150-450); RED BLOOD COUNT 3.68 10^6/uL (4.35-5.55); RED CELL DISTRIBUTION WIDTH 14.3 % (11.5-14.0); WHITE BLOOD COUNT 14.3 10^3/uL (4.0-10.5)
[2018-07-21 06:05] LABS: ALANINE AMINOTRANSFERASE 50 U/L (21-72); ALBUMIN 2.7 g/dL (3.5-5.0); ALKALINE PHOSPHATASE 158 U/L (38-126); ASPARTATE AMINO TRANSFERASE 36 U/L (17-59); BILIRUBIN,DIRECT 0.3 mg/dL (0.0-0.4); BILIRUBIN,TOTAL 0.3 mg/dL (0.2-1.3); BLOOD UREA NITROGEN 9 mg/dL (7-20); CALCIUM 8.4 mg/dL (8.4-10.2); CARBON DIOXIDE 25 mmol/L (22-30); CHLORIDE 105 mmol/L (98-107); GLUCOSE 98 mg/dL (75-110); POTASSIUM 3.9 mmol/L (3.6-5.0); TOTAL PROTEIN 6.2 g/dL (6.3-8.2)
[2018-07-21 06:18] LABS: ANION GAP 9 (5-19); SODIUM 138.8 mmol/L (137-145)
[2018-07-21 06:28] LABS: ABSOLUTE LYMPHOCYTES# (MANUAL) 4.1 10^3/uL (0.5-4.7); ABSOLUTE MONOCYTES # (MANUAL) 0.9 10^3/uL (0.1-1.4); ABSOLUTE NEUTROPHILS# (MANUAL) 9.2 10^3/uL (1.7-8.2); BASOPHILS % (MANUAL) 0 % (0-2); EOSINOPHILS % (MANUAL) 1 % (0-6); LYMPHOCYTES % (MANUAL) 28 % (13-45); MONOCYTES % (MANUAL) 6 % (3-13); SEGMENTED NEUTROPHILS % (MAN) 64 % (42-78); TOTAL CELLS COUNTED 100
[2018-07-21 06:29] LABS: ANISOCYTOSIS SLIGHT; PLATELET COMMENT ADEQUATE; POLYCHROMASIA SLIGHT
--- NOTE | 2018-07-21 07:05 | PSYCHOLOGICAL NOTE ---
Psych Note - Psych Note Psych Note: Reason for consult: IVC This 32-year-old man presents for evaluation of painful swelling in the left lower extremity as well as redness, fevers, confusion generalized malaise and a headache. He currently says that his symptoms have seemed to worsen, his mother did bring him on IVC paperwork as well because she notes he is continued to utilize heroin over last several days and has been picking at his skin as well as having paranoia. Clinician conducted check-in with patient Clinician spoke with patient briefly however he is very irritable and does not want to engage with clinician stating he just wants to leave to go get high. Patient is currently experiencing opiate withdrawal. Patient's mother is very tearful and explains that her younger son 1 year ago from heroin overdose. She reports that she is trying to do anything to save her son's life. Clinician notes that just prior to arrival patient's sitter noticed the patient had a small empty baggy. Patient disclosed to clinician that his friend brought him some pills to help him with his anxiety. Patient's mother discloses that she believes it was kratom because he takes it very frequently and recognize the pills. Patient states he took 2 earlier however when he took the last 2, the sitter saw him. [facility] staff is currently now going to the patient 's room to ensure no other medications or drugs are in the room and changing over the patient into blue scrubs. Clinician explained to the patient and patient's mother no outside medications or belongings can be brought into the room. In addition no visitors other than the patient's mother father and grandmother now. 292.0 (F11.23) opiate withdrawal Patient is recommended to continue under IVC. Patient's insight, judgment, and impulse control are extremely poor making him a danger to himself. Patient is currently going through withdrawals. Patient will be reevaluated. Dr. Duran was consulted and the care and management of this patient; attending physician is in agreement with recommendations and disposition.
--- NOTE | 2018-07-21 07:06 | PSYCHOLOGICAL NOTE ---
Psych Note - Psych Note Psych Note: Reason for consult: IVC This 32-year-old man presents for evaluation of painful swelling in the left lower extremity as well as redness, fevers, confusion generalized malaise and a headache. He currently says that his symptoms have seemed to worsen, his mother did bring him on IVC paperwork as well because she notes he is continued to utilize heroin over last several days and has been picking at his skin as well as having paranoia. Chart review conducted No new concerns have arisen. no visitors other than the patient's mother father and grandmother now. 292.0 (F11.23) opiate withdrawal Patient is recommended to continue under IVC. Patient's insight, judgment, and impulse control are extremely poor making him a danger to himself. Patient is currently going through withdrawals. Patient will be reevaluated. Dr. Duran was consulted and the care and management of this patient; attending physician is in agreement with recommendations and disposition.
--- NOTE | 2018-07-21 11:01 | PDOC PROGRESS REPORT ---
Subjective Progress Note for:: 07/21/18 Subjective:: Left lower extremity pain improving since the surgery,but consistently asking for opioids. Last night he was asking for a higher dose of Dilaudid and was threatening to leave AMA mother was contacted and patient's Dilaudid was increased to 1 mg every 3 hours. He is still not very content with the amount of Dilaudid that he is receiving and he wants more Dilaudid stating that he is a heroin addict and he needs more. He denies having any fever, shortness of breath, chest pain, nausea, vomiting, diarrhea or any urinary symptoms. Reason For Visit: LLE FASCIITIS,LLE CELLULITIS Physical Exam Vital Signs: Temp Pulse Resp BP Pulse Ox 97.6 F 70 18 133/81 H 100 07/20/18 20:08 07/20/18 20:08 07/20/18 20:08 07/20/18 20:08 07/20/18 20:08 Intake & Output 07/20/18 07/21/18 07/22/18 06:59 06:59 06:59 Intake Total 4641 4556 Output Total 1710 950 Balance 2931 3606 Weight 64.1 kg 66.4 kg General appearance: PRESENT: no acute distress, well-developed, well-nourished Head exam: PRESENT: atraumatic, normocephalic Eye exam: PRESENT: conjunctiva pink, EOMI, PERRLA. ABSENT: scleral icterus Ear exam: PRESENT: normal external ear exam Mouth exam: PRESENT: moist, tongue midline Neck exam: ABSENT: carotid bruit, JVD, lymphadenopathy, thyromegaly Respiratory exam: PRESENT: clear to auscultation dona. ABSENT: rales, rhonchi, wheezes Cardiovascular exam: PRESENT: RRR. ABSENT: diastolic murmur, rubs, systolic murmur Pulses: PRESENT: normal dorsalis pedis pul Vascular exam: PRESENT: normal capillary refill GI/Abdominal exam: PRESENT: normal bowel sounds, soft. ABSENT: distended, guarding, mass, organolmegaly, rebound, tenderness Rectal exam: PRESENT: deferred Extremities exam: PRESENT: full ROM, other - Left lower extremity status post I& D and abscess evacuation. Left lower extremity is covered in dressing no sign of any discharge or bleeding.. ABSENT: calf tenderness, clubbing, pedal edema Neurological exam: PRESENT: alert, awake, oriented to person, oriented to place , oriented to time, oriented to situation, CN II-XII grossly intact. ABSENT: motor sensory deficit Psychiatric exam: PRESENT: appropriate affect, normal mood. ABSENT: homicidal ideation, suicidal ideation Skin exam: PRESENT: dry, intact, warm. ABSENT: cyanosis, rash Results Laboratory Results: 07/21/18 05:20 07/21/18 05:20 07/21/18 07/21/18 05:20 05:20 WBC 14.3 H RBC 3.68 L Hgb 10.7 L Hct 31.0 L MCV 84 MCH 29.2 MCHC 34.7 RDW 14.3 H Plt Count 449 Seg Neutrophils % Not Reportable Lymphocytes % Not Reportable Monocytes % Not Reportable Eosinophils % Not Reportable Basophils % Not Reportable Absolute Neutrophils Not Reportable Absolute Lymphocytes Not Reportable Absolute Monocytes Not Reportable Absolute Eosinophils Not Reportable Absolute Basophils Not Reportable Sodium 138.8 Potassium 3.9 Chloride 105 Carbon Dioxide 25 Anion Gap 9 BUN 9 Creatinine 0.80 Est GFR ( Amer) > 60 Est GFR (Non-Af Amer) > 60 Glucose 98 Calcium 8.4 Total Bilirubin 0.3 AST 36 ALT 50 Alkaline Phosphatase 158 H Total Protein 6.2 L Albumin 2.7 L 07/19/18 16:37 Creatine Kinase 28 L Impressions: Tibia/Fibula X-Ray 07/16/18 02:05 IMPRESSION: No acute fracture or dislocation. 2010 [employer]- All Rights Reserved Scrotum Ultrasound 07/18/18 00:00 IMPRESSION: 1. Normal blood flow identified bilaterally. 2. Small bilateral hydroceles. Lower Extremity CT 07/19/18 00:00 IMPRESSION: Findings which are consistent with necrotizing fasciitis left lower leg. Assessment & Plan - Diagnosis (1) Necrotizing fasciitis Is this a current diagnosis for this admission?: Yes Plan: Initial impression of left lower extremity cellulitis but because of the fact that patient was not improving and his pain was out of proportion to physical examination criticizing fasciitis was suspected a CT was done which was confirmed that patient most likely has necrotizing fasciitis. Cultures have been negative and leukocytosis is improving. Status post surgery on 07/19/2018. Pain improving. Wound culture positive for MSSA. DC vancomycin. Start on linezolid (2) Sepsis Qualifiers: Sepsis type: sepsis due to unspecified organism Qualified Code(s): A41.9 - Sepsis, unspecified organism Is this a current diagnosis for this admission?: Yes Plan: Most likely due to left lower extremity infection. Leukocytosis improving vitals stable, continue empiric IV antibiotics. Pending culture and sensitivity. (3) Heroin withdrawal Is this a current diagnosis for this admission?: Yes Plan: Patient has already lost a brother due to heroin addiction and is his other very very concerned about Mr. Tavera continue with heroin addiction and health. Mother is considering to go to [employer] and a declare him f incompetent so she can make his medical decisions. Initially psych evaluated him and plan was to treat his cellulitis and once he is medically cleared and is off of opioids he will be reevaluated and transferred for possible long-term inpatient rehab. Unfortunately since admission has been receiving narcotics due to his left lower extremity cellulitis/abscess/necrotizing fasciitis . Dosage of opiates was increased significantly after he developed necrotizing fasciitis and he had his surgery currently he is on Dilaudid 1 mg every 3 hours and still asking for more. The plan would be to taper him off of opiates whenever clinically appropriate and once he is off of opiates psych will reevaluate him for possible long-term rehab. (4) Wound of skin Is this a current diagnosis for this admission?: Yes Plan: Upper extremity scabs are improving. Continue wound care (5) Left leg cellulitis Is this a current diagnosis for this admission?: Yes Plan: Left lower extremity cellulitis/necrotizing fasciitis or a combination of both. Continue empiric antibiotics. (6) Abscess of left lower extremity excluding foot Is this a current diagnosis for this admission?: Yes Plan: Left lower extremity abscess was found after patient had a necrotizing fasciitis and he was operated on. Left lower extremity abscess was evacuated. Follow-up culture continue current antibiotics. Surgery on board. (7) Heroin abuse Is this a current diagnosis for this admission?: Yes Plan: As planned #3
[2018-07-21] MEDS: GABAPENTIN 300 MG CAPSULE PO SCH ×2 (12:10→22:23)
[2018-07-21 13:26] LABS: VANCOMYCIN,TROUGH < 5.0 ug/mL (5.0-20.0)
[2018-07-21 14:13] LABS: PATH REVIEW PATHOLOGIST REVIEWED
[2018-07-21] MEDS: ENOXAPARIN SODIUM INJ 40 MG/0.4 ML DISP.SYRIN SUBCUT SCH (15:16)
--- NOTE | 2018-07-21 17:11 | PDOC PROGRESS REPORT ---
Subjective Progress Note for:: 07/21/18 Subjective:: Patient complaining of left leg pain Reason For Visit: LLE FASCIITIS,LLE CELLULITIS Physical Exam Vital Signs: Temp Pulse Resp BP Pulse Ox 97.5 F 84 16 137/83 H 100 07/21/18 13:25 07/21/18 13:25 07/21/18 13:25 07/21/18 13:25 07/21/18 13:25 Intake & Output 07/20/18 07/21/18 07/22/18 06:59 06:59 06:59 Intake Total 4641 4556 1825 Output Total 1710 950 450 Balance 2931 3606 1375 Weight 64.1 kg 66.4 kg General appearance: PRESENT: no acute distress Musculoskeletal exam: PRESENT: other - Left lower extremity dressing removed down to the packing. DPC sutures taped to the side; erythema and edema diminished. There is no foul smell or active drainage. Range of motion of the foot preserved. Moderate edema to the foot Results Laboratory Results: 07/21/18 05:20 07/21/18 05:20 07/21/18 07/21/18 05:20 05:20 WBC 14.3 H RBC 3.68 L Hgb 10.7 L Hct 31.0 L MCV 84 MCH 29.2 MCHC 34.7 RDW 14.3 H Plt Count 449 Seg Neutrophils % Not Reportable Lymphocytes % Not Reportable Monocytes % Not Reportable Eosinophils % Not Reportable Basophils % Not Reportable Absolute Neutrophils Not Reportable Absolute Lymphocytes Not Reportable Absolute Monocytes Not Reportable Absolute Eosinophils Not Reportable Absolute Basophils Not Reportable Sodium 138.8 Potassium 3.9 Chloride 105 Carbon Dioxide 25 Anion Gap 9 BUN 9 Creatinine 0.80 Est GFR ( Amer) > 60 Est GFR (Non-Af Amer) > 60 Glucose 98 Calcium 8.4 Total Bilirubin 0.3 AST 36 ALT 50 Alkaline Phosphatase 158 H Total Protein 6.2 L Albumin 2.7 L 07/19/18 16:37 Creatine Kinase 28 L Impressions: Tibia/Fibula X-Ray 07/16/18 02:05 IMPRESSION: No acute fracture or dislocation. 2010 [employer]- All Rights Reserved Scrotum Ultrasound 07/18/18 00:00 IMPRESSION: 1. Normal blood flow identified bilaterally. 2. Small bilateral hydroceles. Lower Extremity CT 07/19/18 00:00 IMPRESSION: Findings which are consistent with necrotizing fasciitis left lower leg. Assessment & Plan - Diagnosis (1) Abscess of left lower extremity excluding foot Is this a current diagnosis for this admission?: Yes Plan: Impression: Satisfactory condition of left lower extremity 2 days status post operative debridement, packing left lower extremity infection; growing staph aureus sensitive to all organisms; on IV vancomycin and Zosyn Recommendations: 1. Leave packing in today; premedicate tomorrow and DC packing and bring the wound together in a DPC fashion by Dr. Szymanski. 2. May consolidate IV antibiotics (2) Heroin abuse Is this a current diagnosis for this admission?: Yes
[2018-07-21] MEDS: LINEZOLID 600 MG/300 ML RTUPB IV SCH (18:31)
--- NOTE | 2018-07-21 18:50 | PSYCHOLOGICAL NOTE ---
Psych Note - Psych Note Psych Note: Reason for Consult: IVC Clinician conducted check in with patient. Patient had emergency surgery last night. Patient states that he is in alot of pain and unable to engage this clinician at this time. Diagnosis: 292.0 (F11.23) Opiate withdrawal Impression/Plan: Patient is recommended to rescind IVC. Patient has undergone surgery and his diagnosis is medical in nature. Please submit a new consult for Behavioral Health if new concerns arise. Dr. Duran was consulted on the care and management of this patient; attending physician is in agreement with recommendations and disposition.
[2018-07-21] MEDS: NICOTINE 21 MG/24 HR PATCH.TD24 TD SCH (22:57)
[2018-07-22] MEDS: HYDROMORPHONE HCL INJ/PF 2 MG/ML AMPULE IV PRN ×7 (01:24→23:12)
[2018-07-22] MEDS: KETOROLAC TROMETHAMINE INJ/PF 30 MG/1 ML SDV IV SCH ×3 (03:02→17:31)
[2018-07-22] MEDS: PIPERACILLIN SODIUM/TAZOBACTAM 4.5 GM in NORMAL SALINE 100 ML IV SCH ×4 (03:04→23:13)
[2018-07-22 04:45] LABS: HEMATOCRIT 32.7 % (37.9-51.0); MEAN CORPUSCULAR HEMOGLOBIN 29.1 pg (27.0-33.4); MEAN CORPUSCULAR HGB CONC 33.8 g/dL (32.0-36.0); MEAN CORPUSCULAR VOLUME 86 fl (80-97); PLATELET COUNT 462 10^3/uL (150-450); RED BLOOD COUNT 3.79 10^6/uL (4.35-5.55); RED CELL DISTRIBUTION WIDTH 14.4 % (11.5-14.0); WHITE BLOOD COUNT 16.1 10^3/uL (4.0-10.5)
[2018-07-22 05:01] LABS: ALANINE AMINOTRANSFERASE 55 U/L (21-72); ALBUMIN 3.1 g/dL (3.5-5.0); ALKALINE PHOSPHATASE 166 U/L (38-126); ANION GAP 9 (5-19); ASPARTATE AMINO TRANSFERASE 31 U/L (17-59); BILIRUBIN,DIRECT 0.2 mg/dL (0.0-0.4); BILIRUBIN,TOTAL 0.5 mg/dL (0.2-1.3); BLOOD UREA NITROGEN 12 mg/dL (7-20); CARBON DIOXIDE 27 mmol/L (22-30); CHLORIDE 103 mmol/L (98-107); GLUCOSE 95 mg/dL (75-110); TOTAL PROTEIN 6.7 g/dL (6.3-8.2)
[2018-07-22 05:05] LABS: ABSOLUTE LYMPHOCYTES# (MANUAL) 3.5 10^3/uL (0.5-4.7); ABSOLUTE MONOCYTES # (MANUAL) 0.5 10^3/uL (0.1-1.4); ABSOLUTE NEUTROPHILS# (MANUAL) 11.4 10^3/uL (1.7-8.2); BAND NEUTROPHILS % (MANUAL) 1 % (3-5); BASOPHILS % (MANUAL) 1 % (0-2); EOSINOPHILS % (MANUAL) 3 % (0-6); LYMPHOCYTES % (MANUAL) 22 % (13-45); MONOCYTES % (MANUAL) 3 % (3-13); PROMYELOCYTES % (MANUAL) 2 % (0); SEGMENTED NEUTROPHILS % (MAN) 68 % (42-78); TOTAL CELLS COUNTED 100
[2018-07-22 05:06] LABS: ANISOCYTOSIS SLIGHT; BURR CELLS 1+; TOXIC GRANULATION 2+
[2018-07-22 05:07] LABS: POIKILOCYTOSIS 1+; POLYCHROMASIA SLIGHT
[2018-07-22 05:08] LABS: PLATELET COMMENT ADEQUATE
[2018-07-22] MEDS: LINEZOLID 600 MG/300 ML RTUPB IV SCH ×2 (05:23→17:30)
[2018-07-22] MEDS: GABAPENTIN 300 MG CAPSULE PO SCH ×2 (10:41→23:12)
[2018-07-22] MEDS: ENOXAPARIN SODIUM INJ 40 MG/0.4 ML DISP.SYRIN SUBCUT SCH (10:42)
[2018-07-22] MEDS: DEXTROSE 5%-NORMAL SALINE 1,000 ML IV PRN (15:17)
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
--- NOTE | 2018-07-22 22:01 | PDOC PROGRESS REPORT ---
Subjective Progress Note for:: 07/22/18 Subjective:: pains left leg Reason For Visit: LLE FASCIITIS,LLE CELLULITIS Physical Exam Vital Signs: Temp Pulse Resp BP Pulse Ox 98.0 F 93 20 121/81 100 07/21/18 23:18 07/21/18 23:18 07/21/18 23:18 07/21/18 23:18 07/21/18 23:18 Intake & Output 07/21/18 07/22/18 07/23/18 06:59 06:59 06:59 Intake Total 4556 5581 1391 Output Total 950 450 775 Balance 3606 5131 616 Weight 66.4 kg 66.9 kg Exam: Packing from left lower leg removed. Wound looks clean and dry. Wound was then partially closed by tying the stay sutures originally placed untied during initial I&D. [facility] a dose of Dilaudid. Also, noticed the area above the incision still awollen and erythematous. There is a small area of fluctuation indicating a new abscess. Results Laboratory Results: 07/22/18 04:08 07/22/18 04:08 07/22/18 07/22/18 04:08 04:08 WBC 16.1 H RBC 3.79 L Hgb 11.0 L Hct 32.7 L MCV 86 MCH 29.1 MCHC 33.8 RDW 14.4 H Plt Count 462 H Seg Neutrophils % Not Reportable Lymphocytes % Not Reportable Monocytes % Not Reportable Eosinophils % Not Reportable Basophils % Not Reportable Absolute Neutrophils Not Reportable Absolute Lymphocytes Not Reportable Absolute Monocytes Not Reportable Absolute Eosinophils Not Reportable Absolute Basophils Not Reportable Sodium 139.0 Potassium 4.0 Chloride 103 Carbon Dioxide 27 Anion Gap 9 BUN 12 Creatinine 0.83 Est GFR ( Amer) > 60 Est GFR (Non-Af Amer) > 60 Glucose 95 Calcium 9.0 Total Bilirubin 0.5 AST 31 ALT 55 Alkaline Phosphatase 166 H Total Protein 6.7 Albumin 3.1 L 07/19/18 16:37 Creatine Kinase 28 L Impressions: Tibia/Fibula X-Ray 07/16/18 02:05 IMPRESSION: No acute fracture or dislocation. 2010 [employer]- All Rights Reserved Scrotum Ultrasound 07/18/18 00:00 IMPRESSION: 1. Normal blood flow identified bilaterally. 2. Small bilateral hydroceles. Lower Extremity CT 07/19/18 00:00 IMPRESSION: Findings which are consistent with necrotizing fasciitis left lower leg. Assessment & Plan - Diagnosis (1) Abscess Is this a current diagnosis for this admission?: Yes (2) New abscess left lower leg Is this a current diagnosis for this admission?: Yes - Time Time Spent with patient: 15-24 minutes - Inpatient Certification Medical Necessity: Need for Pain Control, Need for IV Antibiotics, Need for Surgery - Plan Summary Plan Summary: Scheduled this afternoon for I&D. However, patient apparently left his room for 20 min according to his nurse and came back more belligerant. Anesthesia called me and said patient may drank something and would like to re-schedule in am. I agreed.
[2018-07-23] MEDS: KETOROLAC TROMETHAMINE INJ/PF 30 MG/1 ML SDV IV SCH (01:14)
[2018-07-23] MEDS: PIPERACILLIN SODIUM/TAZOBACTAM 4.5 GM in NORMAL SALINE 100 ML IV SCH (02:31)
[2018-07-23] MEDS: HYDROMORPHONE HCL INJ/PF 2 MG/ML AMPULE IV PRN ×2 (02:32→05:21)
[2018-07-23] MEDS: LINEZOLID 600 MG/300 ML RTUPB IV SCH (05:22)
[2018-07-23] MEDS: NICOTINE 21 MG/24 HR PATCH.TD24 TD SCH (06:44)
[2018-07-23 08:24] VITALS: BP 120/69
[2018-07-23] MEDS ORDERED: LIDOCAINE 1% INJ-PF (10 MG/ML) 30 ML SDV ONE (09:03)
[2018-07-23] MEDS ORDERED: BUPIVACAINE HCL 0.5 % INJ/PF 30 ML SDV ONE (09:04)
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
== END 2018-07-23 10:51 | disposition left against medical advice (07) | DRG 501 ==
LOC: ER 00:06 → EH 06:52 → INTOOBSV 06:52 → OBSVTOIN 10:41 → 5 12:54
PROVIDERS: ADMIT Internal Medicine; ATTEND Internal Medicine
PROC: 0J9P0ZZ Drainage of Left Lower Leg Subcutaneous Tissue and Fascia, Open Approach (ICD-10-PCS; principal; 2018-07-19 12:30)
PROC: 0HJPXZZ Inspection of Skin, External Approach (ICD-10-PCS; 2018-07-22)
PROC: 2W5 Placement, Anatomical Regions, Removal (ICD-10-PCS; 2018-07-22)
DX: M72.6 Necrotizing fasciitis (principal); F11.23 Opioid dependence with withdrawal; L02.416 Cutaneous abscess of left lower limb; B95.61 Methicillin susceptible Staphylococcus aureus infection as the cause of diseases classified elsewhere; B37.2 Candidiasis of skin and nail; K21.9 Gastro-esophageal reflux disease without esophagitis; Z79.899 Other long term (current) drug therapy; F17.200 Nicotine dependence, unspecified, uncomplicated
CPT/HCPCS: 01470; 36415; 76870; 80048; 80053; 80202; 80307; 81001; 82550; 82565; 82803; 83605; 83735; 85025; 85610; 87040; 87070; 87075; 87077; 87186; 87205; 93005; 93010; 93976; 96361; 96372; 96374; 99285; J0131; J0696; J1100; J1170; J1630; J1885; J2001; J2020; J2060; J2250; J2270; J2405; J2543; J2704; J3010; J3370; J3490; J7030; J7060; S0164

== ENCOUNTER 2018-07-28 02:14 | Inpatient (IN) | payer SELFPAY ==
[2018-07-28] MEDS ORDERED: KETOROLAC TROMETHAMINE INJ/PF 30 MG/1 ML SDV IV ONE (03:43)
[2018-07-28] MEDS ORDERED: FENTANYL CITRATE INJ/PF 100 MCG/2 ML AMPUL IV ONE (03:44)
[2018-07-28] MEDS ORDERED: NORMAL SALINE 1000 ML 1,000 ML IV ONE (03:44)
[2018-07-28] MEDS ORDERED: VANCOMYCIN HCL INJ 1000 MG VIAL IV ONE (03:44)
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
[2018-07-28 04:11] LABS: ABSOLUTE BASOPHILS # (AUTO) 0.1 10^3/uL (0.0-0.2); ABSOLUTE LYMPHOCYTES (AUTO) 2.8 10^3/uL (0.5-4.7); ABSOLUTE MONOCYTES (AUTO) 0.9 10^3/uL (0.1-1.4); BASOPHILS % (AUTO) 1.2 % (0-2); EOSINOPHILS % (AUTO) 0.2 % (0-6); HEMATOCRIT 37.7 % (37.9-51.0); LYMPHOCYTES % (AUTO) 25.9 % (13-45); MEAN CORPUSCULAR HEMOGLOBIN 29.7 pg (27.0-33.4); MEAN CORPUSCULAR HGB CONC 34.5 g/dL (32.0-36.0); MEAN CORPUSCULAR VOLUME 86 fl (80-97); MONOCYTES % (AUTO) 7.9 % (3-13); PLATELET COUNT 653 10^3/uL (150-450); RED BLOOD COUNT 4.39 10^6/uL (4.35-5.55); RED CELL DISTRIBUTION WIDTH 15.3 % (11.5-14.0); SEGMENTED NEUTROPHILS % (AUTO) 64.8 % (42-78); TOTAL CELLS COUNTED % (AUTO) 100 %; WHITE BLOOD COUNT 10.8 10^3/uL (4.0-10.5)
[2018-07-28] MEDS ORDERED: PIPERACILLIN/TAZOBACTAM 3.375 GM VIAL IV ONE (04:17)
[2018-07-28 04:27] LABS: ALANINE AMINOTRANSFERASE 33 U/L (21-72); ALBUMIN 4.6 g/dL (3.5-5.0); ALKALINE PHOSPHATASE 108 U/L (38-126); ANION GAP 9 (5-19); ASPARTATE AMINO TRANSFERASE 50 U/L (17-59); BILIRUBIN,DIRECT 0.7 mg/dL (0.0-0.4); BILIRUBIN,TOTAL 1.2 mg/dL (0.2-1.3); BLOOD UREA NITROGEN 24 mg/dL (7-20); CALCIUM 9.9 mg/dL (8.4-10.2); CARBON DIOXIDE 28 mmol/L (22-30); CHLORIDE 101 mmol/L (98-107); GLUCOSE 101 mg/dL (75-110); POTASSIUM 4.4 mmol/L (3.6-5.0); SODIUM 138.1 mmol/L (137-145); TOTAL PROTEIN 9.2 g/dL (6.3-8.2)
[2018-07-28] MEDS ORDERED: PIPERACILLIN SODIUM/TAZOBACTAM 3.375 GM in NORMAL SALINE 100 ML IV ONE (04:45)
[2018-07-28] MEDS ORDERED: ONDANSETRON HCL INJ/PF 4 MG/2 ML SDV IV PRN (05:57)
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
[2018-07-28] MEDS ORDERED: VANCOMYCIN HCL 0 MG in DEXTROSE 5%-WATER 250 ML IV NR (06:15)
[2018-07-28] MEDS ORDERED: ENOXAPARIN SODIUM INJ 40 MG/0.4 ML DISP.SYRIN SUBCUT SCH (10:00)
[2018-07-28] MEDS: OXYCODONE HCL IR 5 MG TABLET PO PRN ×4 (10:09→22:34)
[2018-07-28] MEDS: PIPERACILLIN SODIUM/TAZOBACTAM 3.375 GM in NORMAL SALINE 100 ML IV SCH ×2 (11:59→18:29)
--- NOTE | 2018-07-28 13:41 | PDOC PROGRESS REPORT ---
Subjective Progress Note for:: 07/28/18 Subjective:: pains along top and medial to incision Reason For Visit: LOCAL INFECTION OF WOUND,CELLULITIS Physical Exam Vital Signs: Temp Pulse Resp BP Pulse Ox 97.9 F 137 H 16 94/59 L 96 07/28/18 07:00 07/28/18 02:23 07/28/18 07:09 07/28/18 07:09 07/28/18 07:09 Intake & Output 07/27/18 07/28/18 07/29/18 06:59 06:59 06:59 Intake Total 100 Balance 100 Exam: Still slightly more swelling and erythema just superior and medial to old I&D site. This area is also tender. He is an IV drug user and his threshod for pain is very low. No drainage from old incision site which was parially closed with delayed at bedside a few days ago. Was sent home but did not take or did not fill his antibiotic prescription. Will keep leg elevated and continue IV antibiotics. Re-evaluate wound/lower leg in am. Keep NPO from midnite in case he needs a 2nd I&D of left lower leg
[2018-07-28] MEDS: VANCOMYCIN HCL 1,000 MG in DEXTROSE 5%-WATER 250 ML IV SCH (16:19)
[2018-07-28] MEDS ORDERED: OXYCODONE HCL SR 10 MG TABLET PO SCH (22:00)
[2018-07-29] MEDS: PIPERACILLIN SODIUM/TAZOBACTAM 3.375 GM in NORMAL SALINE 100 ML IV SCH ×2 (00:35→06:36)
[2018-07-29] MEDS: VANCOMYCIN HCL 1,000 MG in DEXTROSE 5%-WATER 250 ML IV SCH (04:49)
[2018-07-29] MEDS: OXYCODONE HCL IR 5 MG TABLET PO PRN (04:54)
[2018-07-29 05:43] LABS: HEMATOCRIT 34.2 % (37.9-51.0); HEMOGLOBIN 11.7 g/dL (13.5-17.0); MEAN CORPUSCULAR HEMOGLOBIN 29.9 pg (27.0-33.4); MEAN CORPUSCULAR HGB CONC 34.3 g/dL (32.0-36.0); MEAN CORPUSCULAR VOLUME 87 fl (80-97); PLATELET COUNT 505 10^3/uL (150-450); RED BLOOD COUNT 3.92 10^6/uL (4.35-5.55); RED CELL DISTRIBUTION WIDTH 15.6 % (11.5-14.0); WHITE BLOOD COUNT 6.9 10^3/uL (4.0-10.5)
[2018-07-29 06:03] LABS: ALANINE AMINOTRANSFERASE 33 U/L (21-72); ALBUMIN 3.5 g/dL (3.5-5.0); ALKALINE PHOSPHATASE 161 U/L (38-126); ANION GAP 9 (5-19); ASPARTATE AMINO TRANSFERASE 27 U/L (17-59); BILIRUBIN,DIRECT 0.5 mg/dL (0.0-0.4); BILIRUBIN,TOTAL 0.8 mg/dL (0.2-1.3); BLOOD UREA NITROGEN 18 mg/dL (7-20); CALCIUM 9.2 mg/dL (8.4-10.2); CARBON DIOXIDE 25 mmol/L (22-30); CHLORIDE 105 mmol/L (98-107); GLUCOSE 95 mg/dL (75-110); POTASSIUM 4.6 mmol/L (3.6-5.0); SODIUM 138.5 mmol/L (137-145); TOTAL PROTEIN 7.2 g/dL (6.3-8.2)
[2018-07-29 06:17] LABS: ABSOLUTE LYMPHOCYTES# (MANUAL) 2.9 10^3/uL (0.5-4.7); ABSOLUTE MONOCYTES # (MANUAL) 0.3 10^3/uL (0.1-1.4); ABSOLUTE NEUTROPHILS# (MANUAL) 3.5 10^3/uL (1.7-8.2); BAND NEUTROPHILS % (MANUAL) 1 % (3-5); BASOPHILS % (MANUAL) 1 % (0-2); EOSINOPHILS % (MANUAL) 2 % (0-6); LYMPHOCYTES % (MANUAL) 42 % (13-45); MONOCYTES % (MANUAL) 5 % (3-13); SEGMENTED NEUTROPHILS % (MAN) 49 % (42-78); TOTAL CELLS COUNTED 100
[2018-07-29 06:18] LABS: ANISOCYTOSIS 1+; PLATELET COMMENT ADEQUATE; POLYCHROMASIA 1+
[2018-07-29 09:18] VITALS: BP 134/95
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
== END 2018-07-29 09:48 | disposition left against medical advice (07) | DRG 603 ==
LOC: ER 02:14 → EH 05:27 → 4S 16:04
PROVIDERS: ADMIT Surgery; ATTEND Surgery
DX: L03.116 Cellulitis of left lower limb (principal); F11.10 Opioid abuse, uncomplicated; K21.9 Gastro-esophageal reflux disease without esophagitis; Z79.899 Other long term (current) drug therapy; F17.200 Nicotine dependence, unspecified, uncomplicated; Z86.14 Personal history of Methicillin resistant Staphylococcus aureus infection
CPT/HCPCS: 36415; 80053; 83605; 85025; 87040; 96361; 96374; 96375; 99284; J1650; J1885; J2543; J3010; J3370; J7060

== ENCOUNTER 2018-07-29 21:26 | Emergency (ER) | payer SELFPAY ==
[2018-07-29 22:23] VITALS: BP 138/77
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
[2018-07-30] MEDS ORDERED: CLINDAMYCIN PHOSPHATE INJ 300 MG/2 ML SDV IM ONE (02:45)
== END 2018-07-30 02:55 | disposition home or self-care (01) ==
LOC: ER 21:26
DX: L03.116 Cellulitis of left lower limb (principal); F17.200 Nicotine dependence, unspecified, uncomplicated; Z98.890 Other specified postprocedural states; Z65.5 Exposure to disaster, war and other hostilities; Z86.14 Personal history of Methicillin resistant Staphylococcus aureus infection
CPT/HCPCS: 99283; 96372; J3490

== ENCOUNTER 2018-08-23 21:23 | Emergency (ER) | payer SELFPAY ==
[2018-08-23 21:49] LABS: ABSOLUTE BASOPHILS # (AUTO) 0.1 10^3/uL (0.0-0.2); ABSOLUTE EOSINOPHILS # (AUTO) 0.1 10^3/uL (0.0-0.6); ABSOLUTE LYMPHOCYTES (AUTO) 2.2 10^3/uL (0.5-4.7); ABSOLUTE MONOCYTES (AUTO) 0.4 10^3/uL (0.1-1.4); ABSOLUTE NEUT (AUTO) 6.3 10^3/uL (1.7-8.2); BASOPHILS % (AUTO) 1.2 % (0-2); EOSINOPHILS % (AUTO) 1.2 % (0-6); HEMATOCRIT 37.1 % (37.9-51.0); HEMOGLOBIN 13.2 g/dL (13.5-17.0); LYMPHOCYTES % (AUTO) 23.9 % (13-45); MEAN CORPUSCULAR HEMOGLOBIN 30.6 pg (27.0-33.4); MEAN CORPUSCULAR HGB CONC 35.5 g/dL (32.0-36.0); MEAN CORPUSCULAR VOLUME 86 fl (80-97); MONOCYTES % (AUTO) 4.9 % (3-13); PLATELET COUNT 356 10^3/uL (150-450); SEGMENTED NEUTROPHILS % (AUTO) 68.8 % (42-78); TOTAL CELLS COUNTED % (AUTO) 100 %; WHITE BLOOD COUNT 9.1 10^3/uL (4.0-10.5)
[2018-08-23 22:07] LABS: ACETAMINOPHEN < 10 ug/mL (10-30); ALANINE AMINOTRANSFERASE 38 U/L (21-72); ALBUMIN 4.3 g/dL (3.5-5.0); ALCOHOL < 10 mg/dL (NONE DETECTED); ALKALINE PHOSPHATASE 125 U/L (38-126); ANION GAP 8 (5-19); ASPARTATE AMINO TRANSFERASE 31 U/L (17-59); BILIRUBIN,DIRECT 0.2 mg/dL (0.0-0.4); BLOOD UREA NITROGEN 8 mg/dL (7-20); CALCIUM 9.4 mg/dL (8.4-10.2); CARBON DIOXIDE 29 mmol/L (22-30); CHLORIDE 101 mmol/L (98-107); GLUCOSE 100 mg/dL (75-110); POTASSIUM 4.6 mmol/L (3.6-5.0); SALICYLATE < 1.0 mg/dL (2.0-20.0); SODIUM 137.6 mmol/L (137-145); TOTAL PROTEIN 7.6 g/dL (6.3-8.2)
--- NOTE | 2018-08-23 22:56 | ER Document Report ---
ED General - General Chief Complaint: Psych Problem Stated Complaint: PSYCH EVAL Time Seen by Provider: 08/23/18 21:29 Notes: Patient is a 32-year-old male with a past medical history of polysubstance abuse who presents after a heroin overdose. The patient states that he shot up heroin today because he could not obtain the oxycodone that he normally uses. The patient states that he is oxycodone 15 mg 3 times daily that he illicitly purchases from family members so that he can work. He states he takes the opiates for his chronic right hip pain. Patient does admit to regular use of heroin as well. He apparently did not require naloxone from EMS today, was awake and alert when EMS arrived. He apparently told the data center consultant on scene that he was suicidal but to me states "I was messing with that rosy, I am not suicidal , I love my life I just want to go home". He denies any additional acute medical concerns. TRAVEL OUTSIDE OF THE [place] IN LAST 30 DAYS: No - HPI Onset: Just prior to arrival Onset/Duration: Sudden Quality of pain: No pain Associated symptoms: None Exacerbated by: Denies Relieved by: Denies - Related Data Allergies/Adverse Reactions: No Known Allergies Allergy (Verified 07/28/18 02:17) Past Medical History - General Information source: Patient - Social History Smoking Status: Current Every Day Smoker Frequency of alcohol use: Occasional Drug Abuse: Heroin, Methamphetamine, Prescription drugs Lives with: Family Family History: Reviewed & Not Pertinent Patient has suicidal ideation: No Patient has homicidal ideation: No Pulmonary Medical History: Denies: Hx Tuberculosis Neurological Medical History: Denies: Hx Seizures Renal/ Medical History: Denies: Hx Peritoneal Dialysis GI Medical History: Reports: Hx Gastroesophageal Reflux Disease, Hx Ulcer Musculoskeletal Medical History: Denies Hx Arthritis Skin Medical History: Reports Hx MRSA Psychiatric Medical History: Denies: Hx Depression Past Surgical History: Reports: Hx Orthopedic Surgery - arm, Other - Incision and drainage of the left lower extremity with subsequent DPC. Denies: Hx Pacemaker - Immunizations Hx Diphtheria, Pertussis, Tetanus Vaccination: Yes Review of Systems - Review of Systems Notes: Constitutional: Negative for fever. HENT: Negative for sore throat. Eyes: Negative for visual changes. Cardiovascular: Negative for chest pain. Respiratory: Negative for shortness of breath. Gastrointestinal: Negative for abdominal pain, vomiting or diarrhea. Genitourinary: Negative for dysuria. Musculoskeletal: Negative for back pain. Skin: Positive for rash. Neurological: Negative for headaches, weakness or numbness. 10 point ROS negative except as marked above and in HPI. Physical Exam - Vital signs Vitals: Resp BP Pulse Ox 17 143/105 H 100 08/23/18 21:27 08/23/18 21:27 08/23/18 21:27 Interpretation: Hypertensive Notes: PHYSICAL EXAMINATION: GENERAL: Somewhat emaciated, somewhat tremulous HEAD: Atraumatic, normocephalic. EYES: Pupils equal round and reactive to light, extraocular movements intact, sclera anicteric, conjunctiva are normal. ENT: nares patent, oropharynx clear without exudates. Moist mucous membranes. NECK: Normal range of motion, supple without lymphadenopathy LUNGS: Breath sounds clear to auscultation bilaterally and equal. No wheezes rales or rhonchi. HEART: Regular rate and rhythm without murmurs ABDOMEN: Soft, nontender, normoactive bowel sounds. No guarding, no rebound. No masses appreciated. EXTREMITIES: Normal range of motion, no pitting or edema. No cyanosis. NEUROLOGICAL: No focal neurological deficits. Moves all extremities spontaneously and on command. PSYCH: Alert, tearful, denies SI or HI SKIN: Warm, Dry, normal turgor, scattered scabbed lesions Course - Re-evaluation Re-evalutation: 08/23/18 22:52 Patient presents after apparently using heroin and becoming unresponsive over the not requiring naloxone reversal in the field. He arrives awake, alert, oriented. He is adamantly denying suicidal ideation. States that he was "messing around" with the Replanting Machine Crewman when he complained of being suicidal. He takes oxycodone 15 mg 3 times daily which he states he takes for right hip pain and denies using this or any other purpose. He does illicitly purchased these from other individuals. Does admit to intermittent use of heroin. The patient and I sat for approximately half hour, he eventually did admit to being addicted to these substances although he was initially very resistant to the idea that he had an issue with opiate abuse. I did strongly encourage the patient to seek rehab, counseling and medical therapy but he declines these requests and interventions. He states that he has no intention of discontinuing opiate abuse, states this is the only way that he can function and work. I have emphasized with patient that he is very high risk for accidental overdose and . He verbalizes an understanding of this. He is very clearly denying suicidal or homicidal. He does have multiple, scattered staph infections. I started him on trimethoprim sulfamethoxazole for treatment. Medical screening labs and exam are otherwise unremarkable. Patient does not meet involuntary commitment criteria, will be released at his request. - Vital Signs Vital signs: Temp Pulse Resp BP Pulse Ox 98.0 F 18 122/89 H 100 08/23/18 21:28 08/23/18 23:02 08/23/18 22:00 08/23/18 21:59 - Laboratory Result Diagrams: 08/23/18 21:40 08/23/18 21:40 Laboratory results interpreted by me: 08/23/18 08/23/18 21:40 21:40 RBC 4.30 L Hgb 13.2 L Hct 37.1 L RDW 15.0 H Salicylates < 1.0 L Acetaminophen < 10 L - EKG Interpretation by Me Additional EKG results interpreted by me: 08/24/18 03:27 Sinus rhythm. Rate 76. No ST elevations or depressions. QTC is 423 Discharge - Discharge Clinical Impression: Opiate abuse, continuous, Heroin abuse, Staphylococcal infection of skin Condition: Stable Disposition: HOME, SELF-CARE Additional Instructions: You were seen today for heroin overdose. Please never use opiates of any kind. Over 200 people every day in the [place] from opiate overdoses. Do not become a statistic. You should urgently seek rehab or a similar resource. You can call 1-009-894-Feedback to find local resources. Return if you have any symptoms that are concerning to you including difficulty breathing, fever, persistent vomiting, or any other symptoms that are concerning to you. You have multiple lesions of your skin that are a staph infection from your IV drug use. Take the Bactrim as prescribed. Prescriptions: Sulfamethoxazole/Trimethoprim [Bactrim Ds Tablet] 1 tab PO BID #20 tablet
[2018-08-23] MEDS ORDERED: SULFAMETHOXAZOLE/TRIMETHOPRIM 800-160 MG TABLET PO ONE (22:57)
[2018-08-23 23:32] VITALS: BP 122/89
--- NOTE | 2018-08-24 08:53 | EKG REPORT ---
SEVERITY:- NORMAL ECG - SINUS RHYTHM : Confirmed by: Yumi Flynn MD 24-Aug-2018 08:51:53
== END 2018-08-23 23:31 | disposition home or self-care (01) ==
LOC: ER 21:23
DX: F11.20 Opioid dependence, uncomplicated (principal); L08.89 Other specified local infections of the skin and subcutaneous tissue; B95.8 Unspecified staphylococcus as the cause of diseases classified elsewhere; F99 Mental disorder, not otherwise specified; M25.551 Pain in right hip; F17.200 Nicotine dependence, unspecified, uncomplicated; Z86.14 Personal history of Methicillin resistant Staphylococcus aureus infection
CPT/HCPCS: 36415; 80053; 80307; 85025; 93005; 93010; 99284